=== PATIENT | female | born 1980 | race Two or more races ===

== ENCOUNTER 2022-10-03 07:12 | Outpatient (REF) | payer OTHER, SELFPAY ==
--- NOTE | ~2022-10-03 | XR_ITS ---
EXAMINATION: XR knee RT 2V, XR knee standing BI CLINICAL INFORMATION: Reason for Exam M25.569 - Pain in unspecified knee COMPARISON: None. TECHNIQUE: Standing view of the bilateral knees and u views of the right knee of the XR/XR knee standing BI FINDINGS/IMPRESSION: * No acute fracture or dislocation. * Joint spaces are maintained without significant degenerative change. * No soft tissue abnormality.
--- NOTE | ~2022-10-03 | XR_ITS ---
EXAMINATION: XR knee RT 2V, XR knee standing BI CLINICAL INFORMATION: Reason for Exam M25.569 - Pain in unspecified knee COMPARISON: None. TECHNIQUE: Standing view of the bilateral knees and u views of the right knee of the XR/XR knee RT 2V FINDINGS/IMPRESSION: * No acute fracture or dislocation. * Joint spaces are maintained without significant degenerative change. * No soft tissue abnormality.
== END 2022-10-03 07:13 | disposition home or self-care (01) ==
LOC: HO.HOSX 07:12
PROVIDERS: Visit Provider Physician Assistant
DX: Z13.89 Encounter for screening for other disorder (principal)

== ENCOUNTER 2022-11-07 20:46 | Emergency (ER) | payer MEDICAID, SELFPAY ==
[2022-11-07 20:59] VITALS: BP 152/101; PULSE 93; RESP 16; TEMP 37.3; O2SAT 98; BMI 38.7
--- NOTE | 2022-11-07 22:27 | ED.LOWEXIN ---
HPI - Extremity Injury (Lower) General Chief Complaint: Extremity Injury, Lower Stated Complaint: knee pain Time Seen by Provider: 11/07/22 22:22 Source: patient Mode of arrival: ambulatory Limitations: no limitations History of Present Illness HPI Narrative: 42-year-old female presents with right knee pain, states that it has been worsening over the past 3 or 4 days. She has had chronic knee pain, reported an injury 3 years ago to the right knee, had an MRI approximately 4 years ago and stated that she should have had surgery. Patient is concerned because the pain is worsening without any new injury or trauma. She does not report fevers or chills, does not report loss of sensation or decreased range of motion. Onset (ago): year(s) (4) Injury: Right: knee Type of Injury: unknown Severity: similar to previous episodes Severity scale (1-10): 7 Relieving factors: nothing Exacerbating factors: weight bearing, movement and palpation Associated symptoms: ambulatory Other symptoms: none Treatments prior to arrival: cold therapy and NSAIDS Related Data Previous Rx's Medication Instructions Recorded naproxen 500 mg tablet 500 mg PO BID PRN pain #90 tabs 11/07/22 Allergies Allergy/AdvReac Type Severity Reaction Status Date / Time latex [LATEX] Allergy Intermediate BURNING Verified 11/07/22 23:14 SKIN povidone-iodine Allergy Intermediate PONCE SKIN Verified 11/07/22 23:14 [From BETADINE] soap [From BETADINE] Allergy Intermediate PONCE SKIN Verified 11/07/22 23:14 tramadol [TRAMADOL] Allergy Mild RASH Verified 11/07/22 23:14 benadine Allergy Unknown Unknown Uncoded 11/07/22 23:14 codeine Allergy Unknown Unknown Uncoded 11/07/22 23:14 latex Allergy Unknown Unknown Uncoded 11/07/22 23:14 tramadol Allergy Unknown Unknown Uncoded 11/07/22 23:14 Review of Systems Review of Systems: Constitutional: No Fever, No Chills Cardiovascular: No Chest Pain Respiratory: No Cough, No Dyspnea Musculoskeletal: positive right knee pain, No Joint Swelling Skin: No Skin lacerations, No rash Neuro: No Weakness, No Numbness, No Paresthesias Yes all other systems are reviewed and are negative PMFSH Past Medical History Attestation statement: The following information was validated with the patient. Source: old records reviewed Social History Social History Advance Directives: No Advance Directives Information Provided: Yes Physical Exam Vital Signs: Vital Signs: Last Vital Signs Temp 99.1 F 11/07/22 20:59 Pulse 93 11/07/22 20:59 Resp 16 11/07/22 20:59 BP 152/101 H 11/07/22 20:59 Pulse Ox 98 11/07/22 20:59 O2 Del Method 11/07/22 20:59 BMI result Body Mass Index 38.7 Appearance: Alert. Oriented X3. No acute distress. Eyes: Pupils equal, round and reactive to light. Neck: Normal inspection. CVS: Normal heart rate and rhythm. Pulses normal. Respiratory: No respiratory distress. Breath sounds normal. Skin: Skin warm and dry. Normal skin color. Normal skin turgor. Extremities: No lower extremity edema. Full range of motion to lower extremities. Ambulatory. Gait well-balanced well coordinated. Neuro: No motor deficit. No sensory deficit. Cranial nerves 2-12 intact. Course Course Course Narrative: 42-year-old female presents with 4 years of right knee pain. Had an MRI approximately 40 years ago and surgery was recommended. Patient does not report any new injuries but states over the past 3-4 days that the pain is worsened. Patient is concerned that she may have worsened the chronic condition. I did discuss options with the patient, that she might be able to follow-up with her primary care physician and/or orthopedics for an outpatient MRI. I do not appreciate any bruising, abnormal swelling, or loss of sensation to the extremity. She is ambulatory with some discomfort. X-rays are pending. 22:45 x-ray in right knee degenerative changes consistent with osteoarthritis. Will have patient follow-up with orthopedics for surgical consult. Medications Administered Discontinued Medications Generic Name Dose Route Start Last Admin Trade Name Freq PRN Reason Stop Dose Admin Ketorolac Tromethamine 60 mg 11/07/22 22:54 11/07/22 23:15 Ketorolac Tromethamine 60 Mg/2 Ml Vial IM 11/07/22 22:55 60 mg ONCE ONE Administration Medical Decision Making Differential Diagnosis Differential Diagnoses: The differential diagnosis associated with the presentation includes Tendon or ligament injury, effusion, dislocation, arthritis Admission/Observation Consideration of admission/observation: Escalation of care including admission/observation considered Admission not considered for this patient Radiology Impression Discussion of test interpretation with radiology: I have reviewed the radiologist's reading. Radiologist Impression: EXAMINATION: XR KNEE, RIGHT? CLINICAL INFORMATION: Right knee pain.? COMPARISON: Right knee radiographs dated 05/19/2017. Right knee MRI dated 06/01/2017.? TECHNIQUE: Three views of the right knee. FINDINGS: Mild tricompartmental degenerative joint changes are seen most pronounced in the medial femoral-tibial compartment. There is no acute fracture or dislocation. There is a small suprapatellar joint effusion with the soft tissues are unremarkable.? XR/XR knee RT 2V IMPRESSION: Mild right knee degenerative joint changes most consistent with osteoarthritis. ? Prescription Management I considered prescription management with: Pain Medication Discharge Plan Discharge Clinical Impression: Osteoarthritis Patient Disposition: Home, Self-Care Instructions: Osteoarthritis (ED) Additional Instructions: You were evaluated for knee pain. X-rays indicates degenerative joint changes consistent with osteoarthritis. Please follow-up with your orthopedic surgeon for evaluation. I have referred you to Dr. Edward Verdin. Please call and request an appointment for evaluation Continue to use supportive measures, rest, ice, and elevate to help reduce pain and swelling. Take naproxen 500 mg twice a day as directed. Thank you for choosing this emergency department for evaluation. Please follow-up with primary care physician as needed. Return to the emergency department for any new, concerning, or worsening symptoms. Prescriptions: New naproxen 500 mg tablet 500 mg PO BID PRN (Reason: pain) Qty: 90 0RF Referrals: Edward Verdin MD [Physician] - 2 weeks (Osteoarthritis right knee) Interventions: ED Discharge Assessment Last Done: 11/07/22 23:19 Discharge Date/Time: 11/07/22 23:20
== END 2022-11-07 23:20 | disposition home or self-care (01) ==
PROVIDERS: Emergency Provider Internal Medicine; PCP Physician Assistant Medical
DX: M17.11 Unilateral primary osteoarthritis, right knee (principal); Z79.899 Other long term (current) drug therapy
CPT/HCPCS: 73560; 96372; 99283; 99284; J1885

== ENCOUNTER → 2022-11-21 12:06 | Outpatient (BNVA) | payer MEDICAID, SELFPAY | PROVIDERS: PCP Physician Assistant Medical; Visit Provider Orthopaedic Surgery | DX: M17.11 Unilateral primary osteoarthritis, right knee (principal) | CPT/HCPCS: 73560; 73565; 99202 ==

== ENCOUNTER 2023-01-28 08:46 | Outpatient (REF) | payer MEDICAID, SELFPAY | END 2023-01-28 08:47 | disposition home or self-care (01) | LOC: HO.MRI 08:46 | PROVIDERS: PCP Physician Assistant Medical; Visit Provider Orthopaedic Surgery | DX: Z13.89 Encounter for screening for other disorder (principal) ==

== ENCOUNTER 2023-03-30 12:42 | Outpatient (REF) | payer OTHER, SELFPAY ==
--- NOTE | ~2023-03-30 | MR_ITS ---
EXAMINATION: MR KNEE WITHOUT CONTRAST, RIGHT CLINICAL INFORMATION: Right knee pain and occasional swelling. Osteoarthritis. COMPARISON: Right knee radiographs dated 11/21/2022 and right knee MRI dated 06/01/2017. TECHNIQUE: MRI of the knee without contrast was performed using routine sequences on a high-field scanner. FINDINGS: MENISCI: MEDIAL MENISCUS: Mild degenerative intrasubstance signal without articular surface tearing. LATERAL MENISCUS: The previously seen complex posterior horn/root tear is not identified on the current examination. No current lateral meniscal tear. LIGAMENTS: CRUCIATE: Attenuation of the anterior cruciate ligament, consistent with a remote partial tear. No edema to suggest acute ligament injury. COLLATERAL: Thickening of the medial collateral ligament consistent with a healed, remote injury. No edema to suggest acute injury. Intact fibular collateral ligament. EXTENSOR MECHANISM: Superior patellar enthesophytes. Intact quadriceps and patellar tendons. Normal patellofemoral alignment. ARTICULAR CARTILAGE/BONE: PATELLOFEMORAL COMPARTMENT: Full-thickness articular cartilage fissuring at the patellar median ridge and lateral patellar facet with associated delamination measuring up to 0.8 cm in craniocaudal dimension. Findings are new when compared to the prior examination. Central and medial trochlea thinning and signal heterogeneity with small marginal osteophytes, new when compared to the prior examination. MEDIAL COMPARTMENT: Articular cartilage thinning with areas of full-thickness loss at the weightbearing medial femoral condyle measuring up to 1.5 x 0.9 cm (AP by ML), new when compared to the prior examination. New marginal osteophytes. LATERAL COMPARTMENT: Diffuse articular cartilage signal heterogeneity and surface irregularity with marginal osteophytes, new when compared to the prior examination. JOINT FLUID AND BURSAE: Trace joint effusion and trace Wallace's cyst. MUSCLES/TENDONS: Mild edema within the proximal soleus and lateral gastrocnemius muscles, consistent with mild muscle strains. MR/MR knee RT wo con IMPRESSION: 1. Mild degenerative intrasubstance signal within the medial meniscus without articular surface tearing. The previously seen complex tear of the lateral meniscus posterior horn/root is not identified on the current examination. No new meniscal tear. 2. Healed, remote anterior cruciate ligament and medial collateral ligament injuries. No evidence of acute ligament injury. 3. Moderate patellofemoral and medial as well as mild lateral compartment osteoarthritis, new when compared to the prior examination. Trace joint effusion and trace Wallace's cyst. 4. Mild strains of the proximal soleus and lateral gastrocnemius muscles.
== END 2023-03-30 12:43 | disposition home or self-care (01) ==
LOC: HO.MRI 12:42
PROVIDERS: PCP Physician Assistant Medical; Visit Provider Orthopaedic Surgery
DX: M17.11 Unilateral primary osteoarthritis, right knee (principal)
CPT/HCPCS: 73721

== ENCOUNTER → 2023-05-01 10:26 | Outpatient (BNVA) | payer OTHER, SELFPAY | PROVIDERS: PCP Physician Assistant Medical; Visit Provider Orthopaedic Surgery | DX: M17.11 Unilateral primary osteoarthritis, right knee (principal); S83.206D Unspecified tear of unspecified meniscus, current injury, right knee, subsequent encounter; M92.61 Juvenile osteochondrosis of tarsus, right ankle | CPT/HCPCS: 20610; 99212; J1100 ==

== ENCOUNTER 2024-02-08 08:22 | Outpatient (AMB) | payer OTHER, SELFPAY ==
--- NOTE | 2024-02-08 08:24 | A.OFFVIS_ITS ---
Intake Vital Signs 02/08/24 08:27 Height 5 ft 3 in Weight 219 lb BMI 38.8 Intake Visit Reasons: OV - Right Knee OA & Meniscal Tear Intake Note: Cathi is a 42 year old female who presents today for a follow up of her right knee OA & Lateral Meniscus Tear. it was discussed that she was too young for arthroplasty & not anticipated to benefit from arthroscopy. Last injection was done 05/01/23. Patient reports that the injection was helpful for at least 3 months. She explains that she is having pain, particularly ambulation of stairs. She is taking Ibuprofen and Tylenol for her pain and swelling. Allergies latex [LATEX] Allergy (Intermediate, Verified 02/08/24 08:26) BURNING SKIN povidone-iodine [From BETADINE] Allergy (Intermediate, Verified 02/08/24 08:26) PONCE SKIN soap [From BETADINE] Allergy (Intermediate, Verified 02/08/24 08:26) PONCE SKIN tramadol [TRAMADOL] Allergy (Mild, Verified 02/08/24 08:26) RASH benadine Allergy (Unknown, Uncoded 02/08/24 08:26) Unknown codeine Allergy (Unknown, Uncoded 02/08/24 08:26) Unknown latex Allergy (Unknown, Uncoded 02/08/24 08:26) Unknown tramadol Allergy (Unknown, Uncoded 02/08/24 08:26) Unknown HPI OV - Right Knee OA & Meniscal Tear HPI Details Cathi is a 42 year old female who presents today for a follow up of her right knee OA & Lateral Meniscus Tear. it was discussed that she was too young for arthroplasty & not anticipated to benefit from arthroscopy. Last injection was done 05/01/23. Patient reports that the injection was helpful for at least 3 months. She explains that she is having pain, particularly ambulation of stairs. She is taking Ibuprofen and Tylenol for her pain and swelling. [facility] Medical History Lottie's deformity of right heel Physical Exam Vital Signs: BMI result Body Mass Index 38.8 Const General: no acute distress and alert Orientation/consciousness: patient oriented x3 Neuro General: patient oriented x3 Extrem Other: Right Knee: TTP mostly over medial compartment - Hue's Psych Appearance: grossly normal Affect: normal affect Attitude: cooperative Office Procedures Joint Injection/Drain Joint Injection/Drain Details: Injected 1 mL of Decadron and 3 mL 1% lidocaine and 3 mL of 0.25% Marcaine. Site was prepped using aseptic technique. Patient tolerated the procedure well. Primary Site: right knee Approach Used: anterolateral Coding - Large joint Procedure code (CPT) selection complete Assessment & Plan Assessment & Plan (1) Osteoarthritis of right knee: Code(s): M17.11 - Unilateral primary osteoarthritis, right knee Plan: Moderate OA right knee with degenerative minimally symptomatic meniscal tearing. Surgical benefits may not be justifiable. Injected right knee. f/u as needed. Coding Level of Care Code Est Pt Level 3 (50505) Diagnoses Osteoarthritis of right knee M17.11 CPT Codes Coding - Large joint: 43451 - Large joint ([id number])
[2024-02-08 08:27] VITALS: BMI 38.8
== END 2024-02-08 09:15 | disposition home or self-care (01) ==
PROVIDERS: PCP Nurse Practitioner Primary Care; Visit Provider Orthopaedic Surgery
DX: M17.11 Unilateral primary osteoarthritis, right knee (principal); S83.281A Other tear of lateral meniscus, current injury, right knee, initial encounter
CPT/HCPCS: 20610; 99213

== ENCOUNTER → 2024-02-08 08:22 | Outpatient (BNVA) | payer OTHER, SELFPAY | PROVIDERS: PCP Nurse Practitioner Primary Care; Visit Provider Orthopaedic Surgery | DX: M17.11 Unilateral primary osteoarthritis, right knee (principal); S83.281A Other tear of lateral meniscus, current injury, right knee, initial encounter; X58.XXXA Exposure to other specified factors, initial encounter; Y93.9 Activity, unspecified; Y92.9 Unspecified place or not applicable; Y99.9 Unspecified external cause status | CPT/HCPCS: 20610; 99212; J0665; J1100 ==

== ENCOUNTER 2024-08-03 14:27 | Emergency (ER) | payer OTHER, SELFPAY ==
--- NOTE | ~2024-08-03 | XR_ITS ---
EXAMINATION: XR LUMBOSACRAL SPINE CLINICAL INFORMATION: Low back pain COMPARISON: None available. TECHNIQUE: Three views of the lumbosacral spine. FINDINGS: No fracture or destructive lesion. Degenerative change at the lumbosacral junction possibly due to a transitional vertebral process. Alignment is preserved. XR/XR lumbar spine 2-3V IMPRESSION: Unremarkable exam. No acute findings. Electronically signed by: Ramón San MD 08/03/2024 04:38 PM EDT
--- NOTE | ~2024-08-03 | US_ITS ---
EXAMINATION: US TRIPLEX LOWER EXTREMITY, RIGHT CLINICAL INFORMATION: Calf pain COMPARISON: None available. TECHNIQUE: Color-flow triplex imaging with spectral analysis and compression Doppler were performed on the right lower extremity. FINDINGS: Respiratory variation, normal compression and augmented flow are noted throughout the right lower extremity. The visualized common femoral vein, superficial femoral vein, profunda femoral vein, popliteal vein and midcalf posterior tibial venous segments show no evidence of deep venous thrombosis. The peroneal veins are not seen. There is no Wallace's cyst. US/US venous duplex LE RT IMPRESSION: No evidence of deep venous thrombosis involving the right lower extremity extending from the common femoral vein to the popliteal vein. Limited evaluation of calf veins. The visualized posterior tibial venous segments appear patent. The peroneal veins are not seen. If the patient's symptoms persist, followup ultrasound in 5 days 7 days might be of value to exclude proximal propagation from a non-visualized calf vein. . Electronically signed by: Sung Montejo MD 08/03/2024 05:27 PM EDT
[2024-08-03 15:24] VITALS: BP 182/92; PULSE 76; RESP 20; TEMP 36.4; O2SAT 95; BMI 39.9
--- NOTE | 2024-08-03 15:28 | ED.GENADULT ---
HPI - General Adult General Chief complaint: General Medical Stated complaint: r leg pins and needles-bump on r calf Related Data Home Medications ?Medication ?Instructions ?Recorded ?Confirmed losartan 50 mg tablet 50 mg PO DAILY 02/08/24 metformin 500 mg tablet 500 mg PO DAILY 02/08/24 Allergies Allergy/AdvReac Type Severity Reaction Status Date / Time latex [LATEX] Allergy Intermediate BURNING Verified 08/03/24 15:27 SKIN povidone-iodine Allergy Intermediate PONCE SKIN Verified 08/03/24 15:27 [From BETADINE] soap [From BETADINE] Allergy Intermediate PONCE SKIN Verified 08/03/24 15:27 tramadol [TRAMADOL] Allergy Mild RASH Verified 08/03/24 15:27 benadine Allergy Unknown Unknown Uncoded 08/03/24 15:27 codeine Allergy Unknown Unknown Uncoded 08/03/24 15:27 latex Allergy Unknown Unknown Uncoded 08/03/24 15:27 tramadol Allergy Unknown Unknown Uncoded 08/03/24 15:27 PMFSH Past Medical History Medical History Lottie's deformity of right heel Social History Social History Advance Directives: No Advance Directives Information Provided: No Physical Exam ED Vital Signs: BMI result Body Mass Index 39.9 Course Course Course Narrative: This is a rapid medical exam performed by Danielito George NP: Additional HPI, ROS, PE not included below will be deferred to primary provider. Patient is a 44-year-old female presenting to the ED with complaint of right calf pain which she describes as burning. Also has pain to right heel and right lower back. Plan: lumbar xray, u/s Discharge Plan Discharge Clinical Impression: Pain of right calf Patient Disposition: Left W/O Completing Treatment Prescriptions: No Action metformin 500 mg tablet 500 mg PO DAILY losartan 50 mg tablet 50 mg PO DAILY Discharge Date/Time: 08/04/24 02:18
== END 2024-08-04 02:18 | disposition left against medical advice (07) ==
LOC: HO.ED 08-04 01:25
PROVIDERS: Emergency Provider Emergency Medicine
DX: M79.604 Pain in right leg (principal)
CPT/HCPCS: 72100; 93971; 99281; 99284

== ENCOUNTER 2025-07-31 08:28 | Outpatient (REF) | payer OTHER, SELFPAY ==
--- OUTSIDE RECORDS SUMMARY | 2025-07-26 16:55 | XMS_ITS | Encounter Summary ---
Author Organization [facility] Address [address] [place] [address] Care Team Providers Care Bingo Usher Name Role Phone Physician, No Pcp Primary Care Provider Unavaila ble Reason for Referral * Consultation (Routine) - Pending Review Specialty Diagnoses / Procedures Referred By Contpaxton t Referred To Contact Gynecology Traci Traore MD [address] [place] [phone] Phone: tel: fax: [facility] [address] [place] [address] Phone: tel: fax: Referral ID Status Reason Start Date Expiration Date Visits Requested Visits Authorized [id number] Pending Review Specialty Services Required 07/26/2025 07/26/2026 1 1 Reason for Visit * Reason Comments Hypertension Vaginal Bleeding Encounter Details Date Type Department Care Team (Late st Contact Info) Description 07/26/2025 4:55 PM EDT - 07/26/2025 8:59 PM EDT Emergency [facility] Emergency [address] [place] [address] Traci Traore MD [address] [place] [phone] Kendal De MD [address] [place] [phone] Elevated blood pressure reading (Primary Dx); Acute [...] through Care Everywhere. * Hypertension: General Info (Macedonian) * Vaginal Bleeding (Macedonian) documented in this encounter Medications at Time [...] AM EDT Office Visit Orthopedic Surgery - [place] [address] [facility] [address] [place] [phone] Gallito Hood, DPM 175 [facility] [address] [place] [phone] 08/18/2025 10:15 AM EDT Evaluation [facility] Outpatient Rehabilitation - [place] 175 [facility] [address] [place] [phone] Bessie Shoemaker, JULIANA 11/20/2025 1:00 PM EST Nutrition Bariatric Surgery - [place] 175 [facility] [address] [place] [phone] Minerva Shay, RD 175 [facility] [address] [place] [phone] Scheduled Referrals Name Type Priority Associated Diagnoses [...] Signed Date: 07/27/2025 09:19 ET Workstation ID: [id number] Transcribed By: Self Edit Transcribed Date: 07/27/2025 [...] Signed Date: 07/27/2025 09:19 ET Workstation ID: [id number] Transcribed By: Self Edit Transcribed Date: 07/27/2025 09:19 ET us Traci Traore MD IMG XR PROCEDURES Final Result * hCG, serum, qualitative (07/26/2025 6:35 PM EDT) hCG Qual Negative Negative 07/26/2025 8:05 PM EDT [facility] Blood Venous blood specimen / Unknown Venipuncture / Unknown 07/26/2025 6:35 PM EDT 07/26/2025 7:10 PM EDT us Traci Traore MD LAB BLOOD ORDERABLES Final Resul t [facility] [address] [place] [address], [place] [phone] * Magnesium (07/26/2025 6:35 PM EDT) [facility] Magnesium 1.9 1.9 - 2.6 mg/dL LAB CHEMISTRY METHOD 07/26/2025 7:46 PM EDT [facility] Blood Venous blood specimen / Unknown Venipuncture / Unknown 07/26/2025 6:35 PM EDT 07/26/2025 7:10 PM EDT us Traci Traore MD LAB BLOOD ORDERABLES Final Resul t Performing Organization Address City/[facility]/ZIP Co de Phone Number [facility] [address] [place] [address], [place] [phone] * Lipase (07/26/2025 6:35 PM EDT) [facility] Lipase 38 13 - 75 unit/L LAB CHEMISTRY METHOD 07/26/2025 7:46 PM EDT [facility] Blood Venous blood specimen / Unknown Venipuncture / Unknown 07/26/2025 6:35 PM EDT 07/26/2025 7:10 PM EDT us Traci Traore MD LAB BLOOD ORDERABLES Final Resul t Performing Organization Address [facility]/ZIP Co de Phone Number [facility] [address] [place] [address], [place] [phone] * (ABNORMAL) Comprehensive metabolic panel (07/26/2025 6:35 PM EDT) [facility] Sodium 137 133 - 145 mmol/L LAB CHEMISTRY METHOD 07/26/2025 7:47 PM EDT [facility] Potassium 3.8 3.5 - 5.5 mmol/L LAB CHEMISTRY METHOD 07/26/2025 7:47 PM EDT [facility] Chloride 105 96 - 110 mmol/L LAB CHEMISTRY METHOD 07/26/2025 7:47 PM EDT [facility] CO2 29 21 - 32 mmol/L LAB CHEMISTRY METHOD 07/26/2025 7:47 PM [facility] Anion Gap 3 3 - 11 LAB CHEMISTRY METHOD 07/26/2025 7:47 PM [facility] Glucose 102(H) 70 - 100 mg/dL LAB CHEMISTRY METHOD 07/26/2025 7:47 PM [facility] BUN 11 5 - 25 mg/dL LAB CHEMISTRY METHOD 07/26/2025 7:47 PM [facility] Creatinine 0.72 0.50 - 1.10 mg/dL LAB CHEMISTRY METHOD 07/26/2025 7:47 PM [facility] eGFR 106 >=60 mL/min/1. 73m2 LAB CHEMISTRY METHOD 07/26/2025 7:47 PM [facility] Comment:Calculation based on the Chronic Kidney Disease Epidemiology Collaboration (CKD-EPI) equation refit without adjustment for race. BUN/Creatinine Ratio 15.3 LAB CHEMISTRY METHOD 07/26/2025 7:47 PM [facility] Calcium 8.9 8.5 - 10.5 mg/dL LAB CHEMISTRY METHOD 07/26/2025 7:47 PM [facility] AST (SGOT) 17 10 - 42 unit/L LAB CHEMISTRY METHOD 07/26/2025 7:47 PM [facility] ALT (SGPT) 18 10 - 60 unit/L LAB CHEMISTRY METHOD 07/26/2025 7:47 PM [facility] Alkaline Phosphatase 50 42 - 121 unit/L LAB CHEMISTRY METHOD 07/26/2025 7:47 PM [facility] Total Protein 6.8 6.0 - 8.0 g/dL LAB CHEMISTRY METHOD 07/26/2025 7:47 PM [facility] Albumin 3.6 3.2 - 5.0 g/dL LAB CHEMISTRY METHOD 07/26/2025 7:47 PM [facility] Total Bilirubin 0.2 0.0 - 1.4 mg/dL LAB CHEMISTRY METHOD 07/26/2025 7:47 PM EDT [facility] Blood Venous blood specimen / Unknown Venipuncture / Unknown 07/26/2025 6:35 PM EDT 07/26/2025 7:10 PM EDT us Traci Traore MD LAB BLOOD ORDERABLES Final Resul t Performing Organization Address [facility] de Phone Number [facility] [address] [place] [address], [place] [phone] * Troponin I high sensitivity (07/26/2025 6:35 PM EDT) [facility] High Sensitivity Troponin I 6 <=54 ng/L LAB CHEMISTRY METHOD 07/26/2025 7:46 PM EDT [facility] Blood Venous blood specimen / Unknown Venipuncture / Unknown 07/26/2025 6:35 PM EDT 07/26/2025 7:09 PM EDT Narrative [facility] - 07/26/2025 7:46 PM EDT High levels of biotin in samples may falsely decrease hsTroponin values. Use caution when interpreting hsTroponin results in patients taking biotin who exhibit renal impairment (eGFR <60) or in patients taking more than 20 mg/day of biotin. us Traci Traore MD LAB BLOOD ORDERABLES Final Resul t Performing Organization Address [facility] Co de Phone Number [facility] [address] [place] [address], [place] [phone] * ECG 12 lead (07/26/2025 5:53 PM EDT) [facility] Ventricular Rate ECG 76 BPM GEMUSE Atrial Rate 76 BPM GEMUSE P-R Interval 134 ms GEMUSE QRS Duration 84 ms GEMUSE Q-T Interval 398 ms GEMUSE QTc 447 ms GEMUSE P Wave Whitman 11 degrees GEMUSE R Whitman -7 degrees GEMUSE T Whitman 9 degrees GEMUSE ECG Interpretation Normal sinus [...] urine culture tube (07/26/2025 5:49 PM EDT) [facility] Extra Tube Hold for add-ons. 07/26/2025 8:01 PM EDT [facility] Comment:Auto resulted. Urine Urine specimen obtained by clean catch procedure / Unknown 07/26/2025 5:49 PM EDT 07/26/2025 6:03 PM EDT Traci Traore MD LAB URINE ORDERABLES Final Resul t Performing Organization Address [facility]/ZIP Co de Phone Number [facility] [address] [place] [address], [place] [phone] * (ABNORMAL) Urinalysis with reflex microscopic (07/26/2025 5:49 PM EDT) [facility] Specific [place] Urine 1.025 1.003 - 1.030 LAB URINALYSIS - AUTOMATED METHOD 07/26/2025 6:11 PM EDT [facility] pH, Urine 6.0 5.0 - 8.0 pH LAB URINALYSIS - AUTOMATED METHOD 07/26/2025 6:11 PM EDT [facility] Leukocytes, Urine Trace(A) Negative LAB URINALYSIS - AUTOMATED METHOD 07/26/2025 6:11 PM EDT [facility] Nitrite, Urine Negative Negative LAB URINALYSIS - AUTOMATED METHOD 07/26/2025 6:11 PM [facility] Protein, Urine 30(A) <=Trace mg/dL LAB URINALYSIS - AUTOMATED METHOD 07/26/2025 6:11 PM [facility] Glucose, Urine Negative Negative mg/dL LAB URINALYSIS - AUTOMATED METHOD 07/26/2025 6:11 PM [facility] Ketones, Urine Negative Negative mg/dL LAB URINALYSIS - AUTOMATED METHOD 07/26/2025 6:11 PM [facility] Urobilinogen , Urine 1.0 0.2 - 1.0 mg/dL LAB URINALYSIS - AUTOMATED METHOD 07/26/2025 6:11 PM [facility] Bilirubin, Urine Negative Negative LAB URINALYSIS - AUTOMATED METHOD 07/26/2025 6:11 PM [facility] Blood, Urine Moderate(A) Negative LAB URINALYSIS - AUTOMATED METHOD 07/26/2025 6:11 PM [facility] RBC, Urine 2.9 0 - 4 /HPF LAB URINALYSIS - AUTOMATED METHOD 07/26/2025 6:11 PM [facility] WBC, Urine 3.8 0 - 4 /HPF LAB URINALYSIS - AUTOMATED METHOD 07/26/2025 6:11 PM [facility] Squamous Epithelial, Urine >100(H) 0 - 60 /LPF LAB URINALYSIS - AUTOMATED METHOD 07/26/2025 6:11 PM [facility] Bacteria, Urine Negative Negative /HPF LAB URINALYSIS - AUTOMATED METHOD 07/26/2025 6:11 PM [facility] Hyaline Casts, Urine 3.2(H) 0 - 3 /LPF LAB URINALYSIS - AUTOMATED METHOD 07/26/2025 6:11 PM [facility] Urine Urine specimen obtained by clean catch procedure / Unknown Non-blood Collection / Unknown 07/26/2025 5:49 PM EDT 07/26/2025 6:03 PM EDT us Traci Traore MD LAB URINE ORDERABLES Final Resul t [facility] [address] [place] [address], * CBC auto differential (07/26/2025 5:48 PM EDT) WBC 7.8 4.8 - 10.8 K/mcL LAB HEMETOLOGY METHOD 07/26/2025 6:10 PM EDT [facility] RBC 4.60 3.80 - 4.80 M/mcL LAB HEMETOLOGY METHOD 07/26/2025 6:10 PM EDT [facility] Hemoglobin 13.5 11.5 - 16.0 g/dL LAB HEMETOLOGY METHOD 07/26/2025 6:10 PM EDT [facility] Hematocrit 40.0 35.0 - 47.0 % LAB HEMETOLOGY METHOD 07/26/2025 6:10 PM EDT [facility] MCV 86.2 79.0 - 98.0 FL LAB HEMETOLOGY METHOD 07/26/2025 6:10 PM EDT [facility] MCH 29.1 27.0 - 32.0 pcg LAB HEMETOLOGY METHOD 07/26/2025 6:10 PM EDT [facility] MCHC 33.8 32.0 - 37.0 g/dL LAB HEMETOLOGY METHOD 07/26/2025 6:10 PM EDT [facility] RDW 12.8 11.0 - 15.0 % LAB HEMETOLOGY METHOD 07/26/2025 6:10 PM EDT [facility] Platelets 337 130 - 400 K/mcL LAB HEMETOLOGY METHOD 07/26/2025 6:10 PM EDT [facility] MPV 10.2 7.0 - 11.0 FL LAB HEMETOLOGY METHOD 07/26/2025 6:10 PM EDT [facility] NRBC 0.0 <1.0 % LAB HEMETOLOGY METHOD 07/26/2025 6:10 PM EDT [facility] NRBC Absolute 0.00 <0.10 K/mcL LAB HEMETOLOGY METHOD 07/26/2025 6:10 PM EDT [facility] Neutrophils Relative 58.3 % LAB HEMETOLOGY METHOD 07/26/2025 6:10 PM EDT [facility] Lymphocytes Relative 30.0 % LAB HEMETOLOGY METHOD 07/26/2025 6:10 PM EDT [facility] Monocytes Relative 7.7 % LAB HEMETOLOGY METHOD 07/26/2025 6:10 PM EDT [facility] Eosinophils Relative 3.1 % LAB HEMETOLOGY METHOD 07/26/2025 6:10 PM EDT [facility] Basophils Relative 0.6 % LAB HEMETOLOGY METHOD 07/26/2025 6:10 PM EDT [facility] Immature Granulocytes Relative 0.3 % LAB HEMETOLOGY METHOD 07/26/2025 6:10 PM EDT [facility] Neutrophils Absolute 4.55 1.50 - 7.00 K/mcL LAB HEMETOLOGY METHOD 07/26/2025 6:10 PM EDT [facility] Lymphocytes Absolute 2.34 1.00 - 5.00 K/mcL LAB HEMETOLOGY METHOD 07/26/2025 6:10 PM EDT [facility] Monocytes Absolute 0.60 0.20 - 1.00 K/mcL LAB HEMETOLOGY METHOD 07/26/2025 6:10 PM EDT [facility] Eosinophils Absolute 0.24 0.00 - 0.50 K/mcL LAB HEMETOLOGY METHOD 07/26/2025 6:10 PM EDT [facility] Basophils Absolute 0.05 0.00 - 0.20 K/[facility] HEMETOLOGY METHOD 07/26/2025 6:10 PM EDT [facility] Immature Granulocytes Absolute 0.02 0.00 - 0.03 K/[facility] HEMETOLOGY METHOD 07/26/2025 6:10 PM EDT [facility] Blood Venous blood specimen / Unknown Venipuncture / Unknown 07/26/2025 5:48 PM EDT 07/26/2025 6:04 PM EDT us Traci Traore MD LAB BLOOD ORDERABLES Final Resul t Performing Organization Address City/[facility]/ZIP Co de Phone Number [facility] [address] [place] [address], [place] [phone] * B-type natriuretic peptide (07/26/2025 5:48 PM EDT) [facility] BNP 7 <=100 pcg/mL LAB CHEMISTRY METHOD 07/26/2025 6:50 PM EDT [facility] Blood Venous blood specimen / Unknown Venipuncture / Unknown 07/26/2025 5:48 PM EDT 07/26/2025 6:04 PM EDT us Traci Traore MD LAB BLOOD ORDERABLES Final Resul t [facility] [address] [place] [address], [place] [phone] * Troponin I high sensitivity (07/26/2025 5:48 PM EDT) High Sensitivity Troponin I 5 <=54 ng/L LAB CHEMISTRY METHOD 07/26/2025 6:37 PM EDT [facility] Blood Venous blood specimen / Unknown Venipuncture / Unknown 07/26/2025 5:48 PM EDT 07/26/2025 6:04 PM EDT Narrative [facility] - 07/26/2025 6:37 PM EDT High levels of biotin in samples may falsely decrease hsTroponin values. Use caution when interpreting hsTroponin results in patients taking biotin who exhibit renal impairment (eGFR <60) or in patients taking more than 20 mg/day of biotin. us Traci Traore MD LAB BLOOD ORDERABLES Final Resul t [facility] [address] [place] [address], [place] [phone] documented in this encounter Visit Diagnoses Diagnosis [...] 07/26/2025 documented in this encounter Care Teams Bingo Usher Relationship Specialty Start Date End Date Physician, No Pcp PCP - General 04/28/25 documented as of this encounter
--- NOTE | ~2025-07-31 | XR_ITS ---
EXAMINATION: XR KNEE 1-2 VIEWS RIGHT HISTORY: pain COMPARISON: Comparison is made with the prior examination dated 11/21/2022. FINDINGS: Standing AP views of both knees and additional lateral and sunrise patellar views of the right knee are submitted. Osseous mineralization is normal. There is mild degenerative change of the patellofemoral joint with osteophyte formation. The joint spaces are preserved. The soft tissues are unremarkable. There is no joint effusion. XR/XR knee RT 2V IMPRESSION: Degenerative changes of the right knee as described. Electronically signed by: Doron Borrego MD 08/01/2025 07:44 AM EDT
--- OUTSIDE RECORDS SUMMARY | 2025-08-01 10:04 | XMS_ITS | Encounter Summary ---
Author Organization [facility] Address [address] [place] [address] Care Team Providers Care Retail Custodial Associate Name Role Phone Physician, No Pcp Primary Care Provider Unavaila ble Encounter Details Date Type Department Care Team ([facility] st Contact Info) Description 07/26/2025 Telephone Orthopedic Surgery - [place] [address] [phone] Gallito Hood, DPM [address] [phone] Social History Tobacco Use Types Packs/Day Years [...] AM EDT Office Visit Orthopedic Surgery - [place] 250 175 [facility] 250 [place] [address] Gallito Hood, DPM 175 [facility] [address] [place] [phone] 08/18/2025 10:15 AM EDT Evaluation [facility] [place] 175 [facility] [address] [place] [address] Bessie Shoemaker, PT 11/20/2025 1:00 PM EST Nutrition Bariatric Surgery - [place] 175 [facility] [address] [place] [address] Minerva Shay, RD 175 [facility] [address] [place] [address] documented as of this encounter Visit Diagnoses Not on filedocumented in this encounter Care Teams Retail Custodial Associate Relationship Specialty Start Date End Date Physician, No Pcp PCP - General 04/28/25 documented as of this encounter
--- OUTSIDE RECORDS SUMMARY | 2025-08-01 10:04 | XMS_ITS | Clinical Summary ---
Author Organization 175 [facility] Address [address] [place] [address] Phone Care Team Providers Care High [employer] Social Studies Tutor Name Role Phone Physician, No Pcp Primary [...] (BMI) of 40.0 to 44.9 in adult ([facility] V24, [facility] V28) 08/19/2024 Microalbuminuria 05/29/2021 Type II or unspecified type diabetes mellitus with renal manifestations, 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.42) ([facility] V24, [facility] V28) 05/29/2021 Essential hypertension 08/24/2019 Low grade squamous intraepit h lesion on cytologic smear cervix (lgsil) 04/27/2017 Overview (08/19/2024): 03/13/17 LSIL 04/24/17 IVETTE 1 10/19/20 ASC-H HR-HPV + neg 18/45 01/29/2021 IVETTE 1 10/31/2021 NSIL HRHPV neg Chronic headaches 12/27/2014 Migraines 12/27/2014 Neck pain 12/27/2014 Encounters Date Type Department Care Team Description 07/26/2025 4:55 PM EDT - 07/26/2025 8:59 PM EDT Emergency [facility] Emergency [address] [place] [phone] Traci Traore MD Granzo, Daniela, MD Elevated blood pressure reading (Primary Dx); Acute nonintractable headache, unspecified headache type; Menorrhagia with irregular cycle Discharge Disposition: Home or Self Care 07/26/2025 1:45 PM EDT Office Visit Bariatric Surgery [facility] 175 [facility] [address] [place] [phone] Zabrina Scales MD Obesity (BMI 30-39.9) (Primary Dx); Essential hypertension; Achilles tendon tear, right, sequela; Type II or unspecified type diabetes mellitus with renal manifestations, 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.42) ([facility] V24, [facility] V28) 07/26/2025 Telephone Orthopedic Surgery [facility] [address] [phone] Gallito Hood DPM 07/06/2025 9:00 AM EDT Office Visit Orthopedic [facility] [address] [phone] Gallito Hood DPM Achilles tendon tear, right, sequela (Primary Dx) 06/21/2025 9:45 AM EDT Office Visit Orthopedic [facility] [address] [phone] Gallito Hood DPM Post-operative state (Primary Dx) 05/10/2025 Telephone Orthopedic Surgery [facility] [address] [phone] Zoraida Booth 05/08/2025 10:15 AM EDT Office Visit Orthopedic Surgery [facility] 250 175 [facility] [address] [place] [address] Gallito Hood DPM Post-operative state [...] DX:Diabetes mellitus type 2, controlled, with complications ([facility]) Essential hypertension DX:Essent ial hypertension Family History [...] AM EDT Office Visit Orthopedic Surgery - [place] [address] [phone] Gallito Hood, DPM [address] [phone] 08/18/2025 10:15 AM EDT Evaluation [facility] [place] [address] [phone] Bessie Shoemaker, PT 11/20/2025 1:00 PM EST Nutrition Bariatric Surgery - [place] [address] [phone] Minerva Shay, RD 175 [facility] 120 [place] [address] Health Maintenance Due Date Last [...] this topic Medical Devices Implanted Type Area Plastic Outfitter Device Identifier Shelf Expiration Date Model / Serial / Lot Implant Bioinductive W/Arth Kuldeep [facility] - [id number] Implanted:Qty: 1 on 04/28/2025 by Gallito Hood DPM at [facility] [employer] Right: Ankle [employer] - ENDOSCOPY 01/05/2028 [id number] / NA / [id number] Ultrabridge Kit Implanted:Qty: 1 on 04/28/2025 by Gallito Hood DPM at [facility] Right: Ankle [employer] 12/28/2027 [id number] / NA / [id number] Procedures Procedure Name Priority Date/Time Associated Diagnosis [...] Signed Date: 07/27/2025 09:19 ET Workstation ID: [id number] Transcribed By: Self Edit Transcribed Date: 07/27/2025 [...] Signed Date: 07/27/2025 09:19 ET Workstation ID: [id number] Transcribed By: Self Edit Transcribed Date: 07/27/2025 [...] ORDERABLES Final Resul t Performing Organization Address City/[facility]/ZIP Co de Phone Number [facility] [address] [place] [address], [place] [phone] * hCG, serum, qualitative (07/26/2025 6:35 PM EDT) Pathologist [facility] hCG Qual Negative Negative 07/26/2025 8:05 PM EDT [facility] Blood Venous blood specimen / Unknown Venipuncture / Unknown 07/26/2025 6:35 PM EDT 07/26/2025 7:10 PM EDT us Traci Traore MD LAB BLOOD ORDERABLES Final Resul t Performing Organization Address [facility] de Phone Number [facility] [address] [place] [address], [place] [phone] * Magnesium (07/26/2025 6:35 PM EDT) [facility] Magnesium 1.9 1.9 - 2.6 mg/dL LAB CHEMISTRY METHOD 07/26/2025 7:46 PM EDT [facility] Blood Venous blood specimen / Unknown Venipuncture / Unknown 07/26/2025 6:35 PM EDT 07/26/2025 7:10 PM EDT us Traci Traore MD LAB BLOOD ORDERABLES Final Resul t Performing Organization Address [facility]/ZIP Co de Phone Number [facility] [address] [place] [address], [place] [phone] * Lipase (07/26/2025 6:35 PM EDT) Pathologist [facility] Lipase 38 13 - 75 unit/L LAB CHEMISTRY METHOD 07/26/2025 7:46 PM [facility] Blood Venous blood specimen / Unknown Venipuncture / Unknown 07/26/2025 6:35 PM EDT 07/26/2025 7:10 PM EDT Traci Traore MD LAB BLOOD ORDERABLES Final Resul t [facility] [address] [place] [address], * (ABNORMAL) Comprehensive metabolic panel (07/26/2025 6:35 PM EDT) [facility] Sodium 137 133 - 145 mmol/L LAB CHEMISTRY METHOD 07/26/2025 7:47 PM [facility] Potassium 3.8 3.5 - 5.5 mmol/L LAB CHEMISTRY METHOD 07/26/2025 7:47 PM [facility] Chloride 105 96 - 110 mmol/L LAB CHEMISTRY METHOD 07/26/2025 7:47 PM [facility] CO2 29 21 - 32 mmol/L LAB CHEMISTRY METHOD 07/26/2025 7:47 PM [facility] Anion Gap 3 3 - 11 LAB CHEMISTRY METHOD 07/26/2025 7:47 PM [facility] Glucose 102(H) 70 - 100 mg/dL LAB CHEMISTRY METHOD 07/26/2025 7:47 PM [facility] BUN 11 5 - 25 mg/dL LAB CHEMISTRY METHOD 07/26/2025 7:47 PM [facility] Creatinine 0.72 0.50 - 1.10 mg/dL LAB CHEMISTRY METHOD 07/26/2025 7:47 PM [facility] eGFR 106 >=60 mL/min/1. 73m2 LAB CHEMISTRY METHOD 07/26/2025 7:47 PM T [facility] Comment:Calculation based on the Chronic Kidney Disease Epidemiology Collaboration (CKD-EPI) equation refit without adjustment for race. BUN/Creatinine Ratio 15.3 LAB CHEMISTRY METHOD 07/26/2025 7:47 PM [facility] Calcium 8.9 8.5 - 10.5 mg/dL LAB CHEMISTRY METHOD 07/26/2025 7:47 PM [facility] AST (SGOT) 17 10 - 42 unit/L LAB CHEMISTRY METHOD 07/26/2025 7:47 PM [facility] ALT (SGPT) 18 10 - 60 unit/L LAB CHEMISTRY METHOD 07/26/2025 7:47 PM [facility] Alkaline Phosphatase 50 42 - 121 unit/L LAB CHEMISTRY METHOD 07/26/2025 7:47 PM [facility] Total Protein 6.8 6.0 - 8.0 g/dL LAB CHEMISTRY METHOD 07/26/2025 7:47 PM [facility] Albumin 3.6 3.2 - 5.0 g/dL LAB CHEMISTRY METHOD 07/26/2025 7:47 PM [facility] Total Bilirubin 0.2 0.0 - 1.4 mg/dL LAB CHEMISTRY METHOD 07/26/2025 7:47 PM [facility] Blood Venous blood specimen / Unknown Venipuncture / Unknown 07/26/2025 6:35 PM EDT 07/26/2025 7:10 PM EDT us Traci Traore MD LAB BLOOD ORDERABLES Final Resul t [facility] [address] [place] [address], * ECG 12 lead (07/26/2025 5:53 PM EDT) Pathologist [facility] Ventricular Rate ECG 76 BPM GEMUSE Atrial Rate 76 BPM GEMUSE P-R Interval 134 ms GEMUSE QRS Duration 84 ms GEMUSE Q-T Interval 398 ms GEMUSE QTc 447 ms GEMUSE P Wave [place] 11 degrees GEMUSE R [place] -7 degrees GEMUSE T [place] 9 degrees GEMUSE ECG Interpretation Normal sinus [...] with reflex microscopic (07/26/2025 5:49 PM EDT) [facility] Specific [place] Urine 1.025 1.003 - 1.030 LAB URINALYSIS - AUTOMATED METHOD 07/26/2025 6:11 PM [facility] pH, Urine 6.0 5.0 - 8.0 pH LAB URINALYSIS - AUTOMATED METHOD 07/26/2025 6:11 PM [facility] Leukocytes, Urine Trace(A) Negative LAB URINALYSIS - AUTOMATED METHOD 07/26/2025 6:11 PM [facility] Nitrite, Urine Negative Negative LAB URINALYSIS - AUTOMATED METHOD 07/26/2025 6:11 PM [facility] Protein, Urine 30(A) <=Trace mg/dL LAB URINALYSIS - AUTOMATED METHOD 07/26/2025 6:11 PM [facility] Glucose, Urine Negative Negative mg/dL LAB URINALYSIS - AUTOMATED METHOD 07/26/2025 6:11 PM [facility] Ketones, Urine Negative Negative mg/dL LAB URINALYSIS - AUTOMATED METHOD 07/26/2025 6:[facility] Urobilinogen , Urine 1.0 0.2 - 1.0 mg/dL LAB URINALYSIS - AUTOMATED METHOD 07/26/2025 6:11 PM [facility] Bilirubin, Urine Negative Negative LAB URINALYSIS - AUTOMATED METHOD 07/26/2025 6:11 PM [facility] Blood, Urine Moderate(A) Negative LAB URINALYSIS - AUTOMATED METHOD 07/26/2025 6:11 PM [facility] RBC, Urine 2.9 0 - 4 /HPF LAB URINALYSIS - AUTOMATED METHOD 07/26/2025 6:11 PM [facility] WBC, Urine 3.8 0 - 4 /HPF LAB URINALYSIS - AUTOMATED METHOD 07/26/2025 6:11 PM [facility] Squamous Epithelial, Urine >100(H) 0 - 60 /LPF LAB URINALYSIS - AUTOMATED METHOD 07/26/2025 6:11 PM [facility] Bacteria, Urine Negative Negative /HPF LAB URINALYSIS - AUTOMATED METHOD 07/26/2025 6:11 PM [facility] Hyaline Casts, Urine 3.2(H) 0 - 3 /LPF LAB URINALYSIS - AUTOMATED METHOD 07/26/2025 6:11 PM [facility] Urine Urine specimen obtained by clean catch procedure / Unknown Non-blood Collection / Unknown 07/26/2025 5:49 PM EDT 07/26/2025 6:03 PM EDT us Traci Traore MD LAB URINE ORDERABLES Final Resul t [facility] [address] [place] [address], * Bah urine culture tube (07/26/2025 5:49 PM EDT) Pathologist [facility] Extra Tube Hold for add-ons. 07/26/2025 8:01 PM EDT [facility] Comment:Auto resulted. Urine Urine specimen obtained by clean catch procedure / Unknown 07/26/2025 5:49 PM EDT 07/26/2025 6:03 PM EDT us Traci Traore MD LAB URINE ORDERABLES Final Resul t [facility] [address] [place] [address], * CBC auto differential (07/26/2025 5:48 PM EDT) [facility] WBC 7.8 4.8 - 10.8 K/mcL LAB [...] K/mcL LAB HEMETOLOGY METHOD [facility]/2025 6:10 PM [facility] MPV 10.2 7.0 - 11.0 FL LAB HEMETOLOGY METHOD 07/26/2025 6:[facility] NRBC 0.0 <1.0 % LAB HEMETOLOGY METHOD 07/26/2025 6:10 PM [facility] NRBC Absolute 0.00 <0.10 K/mcL LAB HEMETOLOGY METHOD 07/26/2025 6:10 PM [facility] Neutrophils Relative 58.3 % LAB HEMETOLOGY METHOD 07/26/2025 6:10 PM [facility] Lymphocytes Relative 30.0 % LAB HEMETOLOGY METHOD 07/26/2025 6:10 PM [facility] Monocytes Relative 7.7 % LAB HEMETOLOGY METHOD 07/26/2025 6:10 PM [facility] Eosinophils Relative 3.1 % LAB HEMETOLOGY METHOD 07/26/2025 6:10 PM [facility] Basophils Relative 0.6 % LAB HEMETOLOGY METHOD 07/26/2025 6:10 PM [facility] Immature Granulocytes Relative 0.3 % LAB HEMETOLOGY METHOD 07/26/2025 6:10 PM [facility] Neutrophils Absolute 4.55 1.50 - 7.00 K/mcL LAB HEMETOLOGY METHOD 07/26/2025 6:10 PM [facility] Lymphocytes Absolute 2.34 1.00 - 5.00 K/mcL LAB HEMETOLOGY METHOD 07/26/2025 6:10 PM [facility] Monocytes Absolute 0.60 0.20 - 1.00 K/mcL LAB HEMETOLOGY METHOD 07/26/2025 6:10 PM EDT [facility] Eosinophils Absolute 0.24 0.00 - 0.50 K/[facility] LAB HEMETOLOGY METHOD 07/26/2025 6:10 PM EDT [facility] Basophils Absolute 0.05 0.00 - 0.20 K/[facility] LAB HEMETOLOGY METHOD 07/26/2025 6:10 PM EDT [facility] Immature Granulocytes Absolute 0.02 0.00 - 0.03 K/[facility] LAB HEMETOLOGY METHOD 07/26/2025 6:10 PM EDT [facility] Blood Venous blood specimen / Unknown Venipuncture / Unknown 07/26/2025 5:48 PM EDT 07/26/2025 6:04 PM EDT us Traci Traore MD LAB BLOOD ORDERABLES Final Resul t Performing Organization Address City/[facility]/ZIP Co de Phone Number [facility] [address] [place] [address], [place] [phone] * B-type natriuretic peptide (07/26/2025 5:48 PM EDT) BNP 7 <=100 pcg/mL LAB CHEMISTRY METHOD 07/26/2025 6:50 PM EDT [facility] Blood Venous blood specimen / Unknown Venipuncture / Unknown 07/26/2025 5:48 PM EDT 07/26/2025 6:04 PM EDT us Traci Traore MD LAB BLOOD ORDERABLES Final Resul t [facility] [address] [place] [address], [place] [phone] * XR Foot 3+ Views Right (06/21/2025 10:27 AM EDT) Only the most recent of2 resultswithin the time period is included. 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 Result [facility] Gallito Hood DPM IMG XR PROCEDURES Final R esult * Cervical Cancer Screening: HPV (10/31/2021) [facility] Cervical Cancer Screening: HPV negative, abstracted Result [facility] HEALTH MAINTENANCE Final Result * HIV Screening (10/31/2021) [facility] HIV Screening abstracted Result [facility] HEALTH MAINTENANCE Final Result * Hepatitis C Screening (10/31/2021) [facility] Hepatitis C Screening abstracted Result [facility] Provider HEALTH MAINTENANCE Final Result * (ABNORMAL) Hemoglobin A1c (09/30/2021) [facility] Hemoglobin A1C 6.9(A) <=6.5 % Blood Venous blood specimen / Unknown Result [facility] Provider LAB BLOOD ORDERABLES Trish l Result * (ABNORMAL) Lipid panel (09/30/2021) [facility] LDL/HDL Ratio 4 0 - 4 Triglycerides 120 0 - 150 mg/dL Cholesterol 222(A) 0 - 200 mg/dL HDL 52 >=40 mg/dL LDL Cholesterol 146(A) 0 - 100 mg/dL Blood Venous blood specimen / Unknown Result [facility] Provider LAB BLOOD ORDERABLES Trish l Result [...] Most Recently Relevant to Health Maintenance Insurance [facility] MEDICAID ADVANTAGE Care Teams High School Social Studies Tutor Relationship Specialty Start Date End Date Physician, No Pcp PCP - General 04/28/25
--- OUTSIDE RECORDS SUMMARY | 2025-08-01 10:04 | XMS_ITS | Clinical Summary ---
Author Organization [facility] Address [address] [place] [address] Care Team Providers Care Jogger Operator Name Role Phone Unavailable Primary Care Provider [...] Drug Screen 11/16/2024 Depression Annual Screen 11/16/2024 [id number] ( season) 2025 021, 02/05/2021 Imm-Influenza (#1) 2025 HIV Screening Completed 11/26/2020 Cervical Ablation/Cold-Knife Conization Discontinued Cervical Cryotherapy Discontinued Colposcopy Discontinued Endometrial Biopsy Discontinued Excision/Leep Discontinued HPV Genotyping Discontinued Vaginal Pap Discontinued Vulvoscopy Discontinued Insurance [employer] PLAN Member Subscriber Plan / Payer (Ef fective 2018-Present) Name:Cathi Hart Relation to Subscriber:Self Name:Cathi Hart Payer ID:[id number] Group ID:Not on file Type:Medicaid Address: [facility] [address] [place] [address]
== END 2025-07-31 08:29 | disposition home or self-care (01) ==
LOC: HO.HOSX 08:28
PROVIDERS: Visit Provider Physician Assistant
DX: M17.11 Unilateral primary osteoarthritis, right knee (principal)
CPT/HCPCS: 73560; 99212

== ENCOUNTER 2025-07-31 15:12 | Outpatient (AMB) | payer OTHER, SELFPAY ==
--- OUTSIDE RECORDS SUMMARY | 2025-07-26 13:45 | XMS_ITS | Encounter Summary ---
Author Organization [employer] Address [address] [place] [address] Care Team Providers Care Medical Bill Processor Name Role Phone Physician, No Pcp Primary Care Provider Unavaila ble Reason for Visit * Reason Comments Follow-up F/U Encounter Details Date Type Department Care Team (Late st Contact Info) Description 07/26/2025 1:45 PM EDT Office Visit Bariatric Surgery - [place] [address] [facility] [address] [place] [phone] Zabrina Scales MD [address] [place] [phone] Obesity (BMI 30-39.9) (Primary Dx); Essential hypertension; Achilles tendon tear, right, sequela; Type II or unspecified type diabetes mellitus with renal manifestations, 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.42) ([facility] V24, [facility] V28) Social History Tobacco Use Types Packs/Day Years Used Date Smoking Tobacco: Never Smokeless Tobacco: Never Alcohol Use Standard Drinks/Week Comments Yes 0 (1 standard drink = 0.6 oz pur e alcohol) Interpersonal Safety Answer Date Record ed Physical Abuse 04/28/2025 Verbal Abuse 04/28/2025 Comments No Sex and Gender Information Value Date Recorded Sex Assigned at Female 01/10/2025 5:11 PM EST Legal Sex Female 9:14 AM EST Gender Identity Female 01/10/2025 5:11 PM EST Sexual Orientation Straight 01/10/2025 5: 11 PM EST documented as of this encounter Last Filed Vital Signs Vital Sign Reading Time Taken Comments Blood Pressure 148/99 07/26/2025 1:51 PM EDT Pulse 84 07/26/2025 1:51 PM EDT Temperature 36.7 C (98.1 F) 07/26/2025 1:51 PM EDT Respiratory Rate - - Oxygen Saturation - - Inhaled Oxygen Concentration - - Weight 102 kg (225 lb) 07/26/2025 1:51 PM EDT Height 160 cm (5' 3 ) 07/26/2025 1:51 PM EDT Body Mass Index 39.86 07/26/2025 1:51 PM EDT documented in this encounter Progress Notes * Zabrina Scales MD - 07/26/2025 1:45 PM EDT Last seen on 05/23/24. Patient denies any significant change in her history since then. She did have a surgery on her right foot/ankle in April for bone spurs and Achilles tendon and now has weightbearing restrictions. Diet: Reflux has improved. Is on pantoprazole which helps. Is following up with GI. DM: stopped metformin, on ozempic. A1C down to 6.5 Weight change since last visit: 222-225= +3 lbs Max 237 Exercise: limited by post op right tendon surgery in April for bone spurs Weight bearing restrictions PCP: just saw her PCP yesterday and had lab work done. Woke up with a headache, had hypertension. PCP recommended that she double up on her losartan. Despite this she continues to have a headache with a somewhat elevated blood pressure. PCP recommend that she go to the ER. She will go right after this visit. Vitals: 07/26/25 1351 BP: (!) 148/99 BP Location: Right arm Patient Position: Sitting BP Cuff Size: Large adult long Pulse: 84 Temp: 36.7 ??C (98.1 ??F) TempSrc: Temporal Weight: 102 kg (225 lb) Height: 1.6 m (63 ) Assessment and plan: 45-year-old female who is interested in restarting the weight loss program. Asit has been over a year she needs to restart from the beginning. We will have her follow-up with the dietitian, discussed the importance of lifelong diet and exercise. Unfortunately exercise is currently limited due to her recent surgery and weightbearing restrictions. I reordered labs. She did seeher PCP yesterday, she will fax us the note as well as the results of the recent labs. I will orderwhat ever of her nutritional labs I need once I have those results. Reflux control is improved. Continue antiacid. Continue follow-up with GI. Diabetes is well-controlled. Continue Ozempic for now. Surgical options were discussed. She will go to the emergency room now. documented in this encounter Plan of Treatment Upcoming Encounters Date Type Department Care Team (Late st Contact Info) Description 08/14/2025 9:45 AM EDT Office Visit Orthopedic Surgery - [place] [address] [facility] [address] [place] [phone] Gallito Hood, DPM [address] [facility] [address] [place] [phone] 08/18/2025 10:15 AM EDT Evaluation [facility] [place] [address] [facility] [address] [place] [phone] Bessie Shoemaker, PT 11/20/2025 1:00 PM EST Nutrition Bariatric Surgery - [place] [address] [facility] [address] [place] [phone] Minerva Shay, RD [address] [facility] [address] [place] [phone] Scheduled Orders Name Type Priority Associated Diagnoses Orde r Schedule CBC and differential Lab Routine Obesity (BMI 30-39.9) 1 Occurrences starting 07/26/2025 until 07/26/2026 Comprehensive metabolic panel Lab Routine Obesity (BMI 30-39.9) 1 Occurrences starting 07/26/2025 until 07/26/2026 Cortisol Lab Routine Obesity (BMI 30-39.9) 1 Occurrences starting 07/26/2025 until 07/26/2026 Ferritin Lab Routine Obesity (BMI 30-39.9) 1 Occurrences starting 07/26/2025 until 07/26/2026 Folate Lab Routine Obesity (BMI 30-39.9) 1 Occurrences starting 07/26/2025 until 07/26/2026 Helicobacter pylori breath test Lab Routine Obesity (BMI 30-39.9) 1 Occurrences starting 07/26/2025 until 07/26/2026 Hemoglobin A1c Lab Routine Obesity (BMI 30-39.9) 1 Occurrences starting 07/26/2025 until 07/26/2026 Insulin, total Lab Routine Obesity (BMI 30-39.9) 1 Occurrences starting 07/26/2025 until 07/26/2026 Iron and TIBC Lab Routine Obesity (BMI 30-39.9) 1 Occurrences starting 07/26/2025 until 07/26/2026 Lipid panel with reflex to direct LDL Lab Routine Obesity (BMI 30-39.9) 1 Occurrences starting 07/26/2025 until 07/26/2026 Nicotine and cotinine Lab Routine Obesity (BMI 30-39.9) 1 Occurrences starting 07/26/2025 until 07/26/2026 Parathyroid hormone intact Lab Routine Obesity (BMI 30-39.9) 1 Occurrences starting 07/26/2025 until 07/26/2026 Thyroid stimulating hormone with reflex to free t4 and free t3 Lab Routine Obesity (BMI 30-39.9) 1 Occurrences starting 07/26/2025 until 07/26/2026 Uric acid Lab Routine Obesity (BMI 30-39.9) 1 Occurrences starting 07/26/2025 until 07/26/2026 Vitamin B1 Lab Routine Obesity (BMI 30-39.9) 1 Occurrences starting 07/26/2025 until 07/26/2026 Vitamin B12 Lab Routine Obesity (BMI 30-39.9) 1 Occurrences starting 07/26/2025 until 07/26/2026 Vitamin D 25 hydroxy Lab Routine Obesity (BMI 30-39.9) 1 Occurrences starting 07/26/2025 until 07/26/2026 documented as of this encounter Visit Diagnoses Diagnosis Obesity (BMI 30-39.9)- Primary Essential hypertension Unspecified essential hypertension Achilles tendon tear, right, sequela Type II or unspecified type diabetes mellitus with renal manifestations, 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.42) ([facility] V24, [facility] V28) Type II or unspecified type diabetes mellitus with renal manifestations, uncontrolled documented in this encounter Care Teams Medical Bill Processor Relationship Specialty Start Date End Date Physician, No Pcp PCP - General 04/28/25 documented as of this encounter
--- OUTSIDE RECORDS SUMMARY | 2025-07-26 16:55 | XMS_ITS | Encounter Summary ---
Author Organization [facility] Address [address] [place] [address] Care Team Providers Care Ux Architect Name Role Phone Physician, No Pcp Primary Care Provider Unavaila ble Reason for Referral * Consultation (Routine) - Pending Review Specialty Diagnoses / Procedures Referred By Contpaxton t Referred To Contact Gynecology Traci Traore MD [address] [place] [phone] Phone: tel: fax: [facility]/[employer] [facility] [address] [place] [address] Phone: tel: fax: Referral ID Status Reason Start Date Expiration Date Visits Requested Visits Authorized [id number] Pending Review Specialty Services Required 07/26/2025 07/26/2026 1 1 Reason for Visit * Reason Comments Hypertension Vaginal Bleeding Encounter Details Date Type Department Care Team (Late st Contact Info) Description 07/26/2025 4:55 PM EDT - 07/26/2025 8:59 PM EDT Emergency [facility] Emergency [address] [place] [phone] Traci Traore MD [address] [place] [id number] Kendal De MD [address] [place] [id number] Elevated blood pressure reading (Primary Dx); Acute nonintractable headache, unspecified headache type; Menorrhagia with irregular cycle Discharge Disposition: Home or Self Care Social History Tobacco Use Types Packs/Day Years [...] Sign Reading Time Taken Comments Blood Pressure 150/84 07/26/2025 6:41 PM EDT Pulse 75 07/26/2025 6:41 PM EDT Temperature 37 C (98.6 F) 07/26/2025 6:41 PM EDT Respiratory Rate 17 07/26/2025 6:41 PM EDT Oxygen Saturation 99% 07/26/2025 6:41 PM EDT Inhaled Oxygen Concentration - - Weight - - Height - - Body Mass Index - - documented in this encounter Discharge Instructions * Discharge Instructions* Traci Traore MD - 07/26/2025 6:34 PM EDT Today you were evaluated for elevated blood pressures. You also were noted to have a headache. Yourelevated blood pressure could be related to having pain. It is important for you to keep a log of your blood pressures to your primary care doctor can make decision regarding changing the dosing of your blood pressure medication. I have also referred you for gynecology for follow-up for further evaluation of abnormal uterine bleeding. * Attachments The following attachments cannot be sent through Care Everywhere. * Hypertension: General Info (Occitan) * Vaginal Bleeding ([place]) documented in this encounter Medications at Time of Discharge acetaminophen (Tylenol 8 Hour) 650 mg 8 hr tablet Take 1 tablet (650 mg total) by mouth every 8 (eight) hours if needed for mild pain. Do not crush, chew, or split. 30 tablet 3 06/21/2025 albuterol 2.5 mg /3 mL (0.083 %) nebulizer solution Take 1 Vial by nebulization every 4 hours as needed for Wheezing for up to 180 days. 12/31/2018 albuterol HFA (PROAIR HFA ; PROVENTIL HFA ; VENTOLIN HFA) 90 mcg/actuation inhaler Inhale 2 Puffs into the lungs 4 times daily as needed for Cough, Wheezing or Shortness of Breath. 12/31/2018 blood sugar diagnostic (FreeStyle Lite Strips) test strip To test sugars once a day prior to breakfast 05/28/2021 diclofenac (VOLTAREN) 1 % topical gel Apply 4 g topically 2 times daily. 11/25/2023 FREESTYLE LANCETS MISC To test sugars once a day prior to breakfast 05/28/2021 losartan (COZAAR) 50 mg tablet Take 1 tablet (50 mg total) by mouth 1 (one) time each day. 09/30/2021 metFORMIN XR (GLUCOPHAGE-XR) 500 mg 24 hr tablet Take 1 tablet (500 mg total) by mouth 1 (one) time each day with breakfast. 03/03/2022 oxyCODONE (ROXICODONE) 5 mg immediate release tablet Take 1 tablet (5 mg total) by mouth every 4 (four) hours if needed for severe pain. Max Daily Amount: 30 mg 15 tablet 05/26/2025 polyethylene glycol (MIRALAX) 17 gram packet Take 17 g by mouth daily for 90 days semaglutide (Ozempic) 0.25 mg or 0.5 mg(2 mg/1.5 mL) injection pen Inject 0.25 mg under the skin every 7 (seven) days. documented as of this encounter Discharge Disposition Disposition Code Departure Means Destination Comment s Home or Self Care documented in this encounter Progress Notes * Nano Cabrera RN - 07/26/2025 2:34 PM EDT Pt comes to ER with c/o a headache and high blood pressure since . Pt sates she started vaginally bleeding on and had a passed a large clot type material and stopped bleeding over the weekend but the bleeding as restarted today. Pt went to a dr appointment and her blood pressure was high and was instructed to come to ER. Pt a&ox4, ambulatory with steady gait in triage. documented in this encounter Plan of Treatment Upcoming Encounters Date Type Department Care Team (Late st Contact Info) Description 08/14/2025 9:45 AM EDT Office Visit Orthopedic Surgery - [place] [address] [facility] [address] [place] [phone] Gallito Hood, DPM 175 [facility] [address] [place] [phone] 08/18/2025 10:15 AM EDT Evaluation [facility] Outpatient Rehabilitation - [place] [address] [facility] [address] [place] [phone] Bessie Shoemaker, JULIANA 11/20/2025 1:00 PM EST Nutrition Bariatric Surgery - [place] 175 [facility] [address] [place] [phone] Minerva Shay, RD [address] [facility] [address] [place] [phone] Scheduled Referrals Name Type Priority Associated Diagnoses Order Schedule Ambulatory referral to Gynecology Outpatient Referral Routine 1 Occurrence s starting 07/26/2025 until 07/26/2026 documented as of this encounter Procedures Procedure Name Priority Date/Time Associated Diagnosis Comments CT HEAD WO CONTRAST STAT 07/26/2025 7 :33 PM EDT POC , URINE DIAGNOSTIC STAT 07/26/2025 7:17 PM EDT XR CHEST 2 VIEWS STAT 07/26/2025 6:52 PM EDT TROPONIN I HIGH SENSITIVITY Timed 07/26/2025 6:35 PM EDT HCG, SERUM, QUALITATIVE STAT Add-on 07/26/2025 6:35 PM EDT MAGNESIUM STAT 07/26/2025 6:35 PM EDT LIPASE STAT 07/26/2025 6:35 PM EDT COMPREHENSIVE METABOLIC PANEL STAT 07/26/2025 6:35 PM EDT ECG 12-LEAD STAT 07/26/2025 5:53 PM EDT URINALYSIS WITH REFLEX MICROSCOPIC STAT 07/26/2025 5:49 PM EDT BAH URINE CULTURE TUBE Routine 07/26/2025 5:49 PM EDT URINALYSIS WITH REFLEX MICROSCOPIC STAT 07/26/2025 5:49 PM EDT EXTRA TUBES Routine 07/26/2025 5:49 PM EDT TROPONIN I HIGH SENSITIVITY Timed 07/26/2025 5:48 PM EDT CBC WITH AUTO DIFFERENTIAL STAT 07/26/2025 5:48 PM EDT CBC AND DIFFERENTIAL STAT 07/26/2025 5:48 PM EDT B-TYPE NATRIURETIC PEPTIDE STAT 07/26/2025 5:48 PM EDT documented in this encounter Results * CT Head wo Contrast (07/26/2025 7:33 PM EDT) Anatomical Region Laterality Modality Head and Neck Computed Tomogra phy 07/26/2025 8:07 PM EDT Impressions 07/26/2025 8:07 PM EDT 1. No acute intracranial findings. This document has been electronically signed by: Mateo Hsu MD on 07/26/2025 20:07:15 Narrative 07/26/2025 8:07 PM EDT INDICATION: Headache, hypertension CT head without contrast Comparison: None provided Findings: No evidence for acute large territory infarct. No acute intracranial hemorrhage. No abnormal extra-axial collection. No midline shift. Basal cisterns are maintained. Normal ventricles. Partially empty sella. Paranasal sinuses are clear. Bilateral mastoid air cells and middle ears are clear. Calvarium and visualized facial bones are intact. Globes and orbits are unremarkable. Procedure Note Mateo Hsu MD - 07/26/2025 INDICATION: Headache, hypertension CT head without contrast Comparison: None provided Findings: No evidence for acute large territory infarct. No acute intracranial hemorrhage. No abnormal extra-axial collection. No midline shift. Basal cisterns are maintained. Normal ventricles. Partially empty sella. Paranasal sinuses are clear. Bilateral mastoid air cells and middle ears are clear. Calvarium and visualized facial bones are intact. Globes and orbits are unremarkable. IMPRESSION: 1. No acute intracranial findings. This document has been electronically signed by: Mateo Hsu MD on 07/26/2025 20:07:15 us Traci Traore MD IMG CT PROCEDURES Final Result * POC , urine manually resulted (07/26/2025 7:17 PM EDT) HCG, Ur POC Negative Negative POC hCG Int QC Pass? Yes Yes Urine Urine specimen obtained by clean catch procedure / Unknown 07/26/2025 7:17 PM EDT us Traci Traore MD POINT OF CARE TEST ENTER/EDIT OR DERABLES Final Result * XR Chest 2 Views (07/26/2025 6:52 PM EDT) Anatomical Region Laterality Modality Body Radiographic Laura ging 07/27/2025 9:19 AM EDT Impressions 07/27/2025 9:19 AM EDT FINDINGS/IMPRESSION: Lungs are clear. No pleural effusion or pneumothorax. Cardiac silhouette and bones are within normal limits. -------- FINAL REPORT -------- Dictated By: WOJCIECH BUCK Dictated Date: 07/27/2025 09:19 ET Assigned Physician: WOJCIECH BUCK Reviewed and Electronically Signed By: WOJCIECH BUCK Signed Date: 07/27/2025 09:19 ET Workstation ID: [id number] Transcribed By: Self Edit Transcribed Date: 07/27/2025 09:19 ET Narrative 07/27/2025 9:19 AM EDT XR CHEST 2 VIEWS INDICATION: Chest pain TECHNIQUE: XR CHEST 2 VIEWS COMPARISON: 10/18/2024 Procedure Note Wojciech Buck MD - 07/27/2025 XR CHEST 2 VIEWS INDICATION: Chest pain TECHNIQUE: XR CHEST 2 VIEWS COMPARISON: 10/18/2024 IMPRESSION: FINDINGS/IMPRESSION: Lungs are clear. No pleural effusion orpneumothorax. Cardiac silhouette and bones are within normal limits. -------- FINAL REPORT -------- Dictated By: WOJCIECH BUCK Dictated Date: 07/27/2025 09:19 ET Assigned Physician: WOJCIECH BUCK Reviewed and Electronically Signed By: WOJCIECH BUCK Signed Date: 07/27/2025 09:19 ET Workstation ID: [id number] Transcribed By: Self Edit Transcribed Date: 07/27/2025 09:19 ET us Traci Traore MD IMG XR PROCEDURES Final Result * hCG, serum, qualitative (07/26/2025 6:35 PM EDT) hCG Qual Negative Negative 07/26/2025 8:05 PM EDT [facility] Blood Venous blood specimen / Unknown Venipuncture / Unknown 07/26/2025 6:35 PM EDT 07/26/2025 7:10 PM EDT us Traci Traore MD LAB BLOOD ORDERABLES Final Resul t [facility] [address] [place] [address], [place] [phone] * Magnesium (07/26/2025 6:35 PM EDT) [facility] Magnesium 1.9 1.9 - 2.6 mg/dL LAB CHEMISTRY METHOD 07/26/2025 7:46 PM EDT [facility] Blood Venous blood specimen / Unknown Venipuncture / Unknown 07/26/2025 6:35 PM EDT 07/26/2025 7:10 PM EDT us Traci Traore MD LAB BLOOD ORDERABLES Final Resul t Performing Organization Address City/[facility]/ZIP Co de Phone Number [facility] [address] [place] [address], [place] [phone] * Lipase (07/26/2025 6:35 PM EDT) [facility] Lipase 38 13 - 75 unit/L LAB CHEMISTRY METHOD 07/26/2025 7:46 PM EDT [facility] Blood Venous blood specimen / Unknown Venipuncture / Unknown 07/26/2025 6:35 PM EDT 07/26/2025 7:10 PM EDT us Traci Traore MD LAB BLOOD ORDERABLES Final Resul t Performing Organization Address [facility]/ZIP Co de Phone Number [facility] [address] [place] [address], [place] [phone] * (ABNORMAL) Comprehensive metabolic panel (07/26/2025 6:35 PM EDT) [facility] Sodium 137 133 - 145 mmol/L LAB CHEMISTRY METHOD 07/26/2025 7:47 PM EDT [facility] Potassium 3.8 3.5 - 5.5 mmol/L LAB CHEMISTRY METHOD 07/26/2025 7:47 PM EDT [facility] Chloride 105 96 - 110 mmol/L LAB CHEMISTRY METHOD 07/26/2025 7:47 PM EDT [facility] CO2 29 21 - 32 mmol/L LAB CHEMISTRY METHOD 07/26/2025 7:47 PM [facility] Anion Gap 3 3 - 11 LAB CHEMISTRY METHOD 07/26/2025 7:47 PM [facility] Glucose 102(H) 70 - 100 mg/dL LAB CHEMISTRY METHOD 07/26/2025 7:47 PM [facility] BUN 11 5 - 25 mg/dL LAB CHEMISTRY METHOD 07/26/2025 7:47 PM [facility] Creatinine 0.72 0.50 - 1.10 mg/dL LAB CHEMISTRY METHOD 07/26/2025 7:47 PM [facility] eGFR 106 >=60 mL/min/1. 73m2 LAB CHEMISTRY METHOD 07/26/2025 7:47 PM [facility] Comment:Calculation based on the Chronic Kidney Disease Epidemiology Collaboration (CKD-EPI) equation refit without adjustment for race. BUN/Creatinine Ratio 15.3 LAB CHEMISTRY METHOD 07/26/2025 7:47 PM [facility] Calcium 8.9 8.5 - 10.5 mg/dL LAB CHEMISTRY METHOD 07/26/2025 7:47 PM [facility] AST (SGOT) 17 10 - 42 unit/L LAB CHEMISTRY METHOD 07/26/2025 7:47 PM [facility] ALT (SGPT) 18 10 - 60 unit/L LAB CHEMISTRY METHOD 07/26/2025 7:47 PM [facility] Alkaline Phosphatase 50 42 - 121 unit/L LAB CHEMISTRY METHOD 07/26/2025 7:47 PM [facility] Total Protein 6.8 6.0 - 8.0 g/dL LAB CHEMISTRY METHOD 07/26/2025 7:47 PM [facility] Albumin 3.6 3.2 - 5.0 g/dL LAB CHEMISTRY METHOD 07/26/2025 7:47 PM [facility] Total Bilirubin 0.2 0.0 - 1.4 mg/dL LAB CHEMISTRY METHOD 07/26/2025 7:47 PM EDT [facility] Blood Venous blood specimen / Unknown Venipuncture / Unknown 07/26/2025 6:35 PM EDT 07/26/2025 7:10 PM EDT us Traci Traore MD LAB BLOOD ORDERABLES Final Resul t Performing Organization Address [facility] de Phone Number [facility] [address] [place] [address], [place] [phone] * Troponin I high sensitivity (07/26/2025 6:35 PM EDT) [facility] High Sensitivity Troponin I 6 <=54 ng/L LAB CHEMISTRY METHOD 07/26/2025 7:46 PM EDT [facility] Blood Venous blood specimen / Unknown Venipuncture / Unknown 07/26/2025 6:35 PM EDT 07/26/2025 7:09 PM EDT Narrative [facility] - 07/26/2025 7:46 PM EDT High levels of biotin in samples may falsely decrease hsTroponin values. Use caution when interpreting hsTroponin results in patients taking biotin who exhibit renal impairment (eGFR <60) or in patients taking more than 20 mg/day of biotin. us Traci Traore MD LAB BLOOD ORDERABLES Final Resul t Performing Organization Address [facility] Co de Phone Number [facility] [address] [place] [address], [place] [phone] * ECG 12 lead (07/26/2025 5:53 PM EDT) [facility] Ventricular Rate ECG 76 BPM GEMUSE Atrial Rate 76 BPM GEMUSE P-R Interval 134 ms GEMUSE QRS Duration 84 ms GEMUSE Q-T Interval 398 ms GEMUSE QTc 447 ms GEMUSE P Wave [place] 11 degrees GEMUSE R [place] -7 degrees GEMUSE T [place] 9 degrees GEMUSE ECG Interpretation Normal sinus rhythm Moderate voltage criteria for LVH, may be normal variant ( R in aVL , Chase product ) When compared with ECG of 07-JAN-2020 11:36, No significant change was found Confirmed by CESAR PINO ([id number]) on 07/26/2025 8:12:39 PM GEMUSE 07/26/2025 5:53 PM EDT 07/26/2025 8:12 PM EDT us Traci Traore MD ECG ORDERABLES Final Result GEMUSE * Bah urine culture tube (07/26/2025 5:49 PM EDT) [facility] Extra Tube Hold for add-ons. 07/26/2025 8:01 PM EDT [facility] Comment:Auto resulted. Urine Urine specimen obtained by clean catch procedure / Unknown 07/26/2025 5:49 PM EDT 07/26/2025 6:03 PM EDT Traci Traore MD LAB URINE ORDERABLES Final Resul t Performing Organization Address [facility]/ZIP Co de Phone Number [facility] [address] [place] [address], [place] [phone] * (ABNORMAL) Urinalysis with reflex microscopic (07/26/2025 5:49 PM EDT) [facility] Specific [place] Urine 1.025 1.003 - 1.030 LAB URINALYSIS - AUTOMATED METHOD 07/26/2025 6:11 PM EDT [facility] pH, Urine 6.0 5.0 - 8.0 pH LAB URINALYSIS - AUTOMATED METHOD 07/26/2025 6:11 PM EDT [facility] Leukocytes, Urine Trace(A) Negative LAB URINALYSIS - AUTOMATED METHOD 07/26/2025 6:11 PM EDT [facility] Nitrite, Urine Negative Negative LAB URINALYSIS - AUTOMATED METHOD 07/26/2025 6:11 PM [facility] Protein, Urine 30(A) <=Trace mg/dL LAB URINALYSIS - AUTOMATED METHOD 07/26/2025 6:11 PM [facility] Glucose, Urine Negative Negative mg/dL LAB URINALYSIS - AUTOMATED METHOD 07/26/2025 6:11 PM [facility] Ketones, Urine Negative Negative mg/dL LAB URINALYSIS - AUTOMATED METHOD 07/26/2025 6:11 PM [facility] Urobilinogen , Urine 1.0 0.2 - 1.0 mg/dL LAB URINALYSIS - AUTOMATED METHOD 07/26/2025 6:11 PM [facility] Bilirubin, Urine Negative Negative LAB URINALYSIS - AUTOMATED METHOD 07/26/2025 6:11 PM [facility] Blood, Urine Moderate(A) Negative LAB URINALYSIS - AUTOMATED METHOD 07/26/2025 6:11 PM [facility] RBC, Urine 2.9 0 - 4 /HPF LAB URINALYSIS - AUTOMATED METHOD 07/26/2025 6:11 PM [facility] WBC, Urine 3.8 0 - 4 /HPF LAB URINALYSIS - AUTOMATED METHOD 07/26/2025 6:11 PM [facility] Squamous Epithelial, Urine >100(H) 0 - 60 /LPF LAB URINALYSIS - AUTOMATED METHOD 07/26/2025 6:11 PM [facility] Bacteria, Urine Negative Negative /HPF LAB URINALYSIS - AUTOMATED METHOD 07/26/2025 6:11 PM [facility] Hyaline Casts, Urine 3.2(H) 0 - 3 /LPF LAB URINALYSIS - AUTOMATED METHOD 07/26/2025 6:11 PM [facility] Urine Urine specimen obtained by clean catch procedure / Unknown Non-blood Collection / Unknown 07/26/2025 5:49 PM EDT 07/26/2025 6:03 PM EDT us Traci Traore MD LAB URINE ORDERABLES Final Resul t [facility] [address] [place] [address], * CBC auto differential (07/26/2025 5:48 PM EDT) WBC 7.8 4.8 - 10.8 K/mcL LAB HEMETOLOGY METHOD 07/26/2025 6:10 PM EDT [facility] RBC 4.60 3.80 - 4.80 M/mcL LAB HEMETOLOGY METHOD 07/26/2025 6:10 PM EDT [facility] Hemoglobin 13.5 11.5 - 16.0 g/dL LAB HEMETOLOGY METHOD 07/26/2025 6:10 PM EDT [facility] Hematocrit 40.0 35.0 - 47.0 % LAB HEMETOLOGY METHOD 07/26/2025 6:10 PM EDT [facility] MCV 86.2 79.0 - 98.0 FL LAB HEMETOLOGY METHOD 07/26/2025 6:10 PM EDT [facility] MCH 29.1 27.0 - 32.0 pcg LAB HEMETOLOGY METHOD 07/26/2025 6:10 PM EDT [facility] MCHC 33.8 32.0 - 37.0 g/dL LAB HEMETOLOGY METHOD 07/26/2025 6:10 PM EDT [facility] RDW 12.8 11.0 - 15.0 % LAB HEMETOLOGY METHOD 07/26/2025 6:10 PM EDT [facility] Platelets 337 130 - 400 K/mcL LAB HEMETOLOGY METHOD 07/26/2025 6:10 PM EDT [facility] MPV 10.2 7.0 - 11.0 FL LAB HEMETOLOGY METHOD 07/26/2025 6:10 PM EDT [facility] NRBC 0.0 <1.0 % LAB HEMETOLOGY METHOD 07/26/2025 6:10 PM EDT [facility] NRBC Absolute 0.00 <0.10 K/mcL LAB HEMETOLOGY METHOD 07/26/2025 6:10 PM EDT [facility] Neutrophils Relative 58.3 % LAB HEMETOLOGY METHOD 07/26/2025 6:10 PM EDT [facility] Lymphocytes Relative 30.0 % LAB HEMETOLOGY METHOD 07/26/2025 6:10 PM EDT [facility] Monocytes Relative 7.7 % LAB HEMETOLOGY METHOD 07/26/2025 6:10 PM EDT [facility] Eosinophils Relative 3.1 % LAB HEMETOLOGY METHOD 07/26/2025 6:10 PM EDT [facility] Basophils Relative 0.6 % LAB HEMETOLOGY METHOD 07/26/2025 6:10 PM EDT [facility] Immature Granulocytes Relative 0.3 % LAB HEMETOLOGY METHOD 07/26/2025 6:10 PM EDT [facility] Neutrophils Absolute 4.55 1.50 - 7.00 K/mcL LAB HEMETOLOGY METHOD 07/26/2025 6:10 PM EDT [facility] Lymphocytes Absolute 2.34 1.00 - 5.00 K/mcL LAB HEMETOLOGY METHOD 07/26/2025 6:10 PM EDT [facility] Monocytes Absolute 0.60 0.20 - 1.00 K/mcL LAB HEMETOLOGY METHOD 07/26/2025 6:10 PM EDT [facility] Eosinophils Absolute 0.24 0.00 - 0.50 K/mcL LAB HEMETOLOGY METHOD 07/26/2025 6:10 PM EDT [facility] Basophils Absolute 0.05 0.00 - 0.20 K/[facility] LAB HEMETOLOGY METHOD 07/26/2025 6:10 PM EDT [facility] Immature Granulocytes Absolute 0.02 0.00 - 0.03 K/[facility] HEMETOLOGY METHOD 07/26/2025 6:10 PM EDT [facility] Blood Venous blood specimen / Unknown Venipuncture / Unknown 07/26/2025 5:48 PM EDT 07/26/2025 6:04 PM EDT us Traci Traore MD LAB BLOOD ORDERABLES Final Resul t Performing Organization Address City/[facility]/ZIP Co de Phone Number [facility] [address] [place] [address], [place] [phone] * B-type natriuretic peptide (07/26/2025 5:48 PM EDT) [facility] BNP 7 <=100 pcg/mL LAB CHEMISTRY METHOD 07/26/2025 6:50 PM EDT [facility] Blood Venous blood specimen / Unknown Venipuncture / Unknown 07/26/2025 5:48 PM EDT 07/26/2025 6:04 PM EDT us Traci Traore MD LAB BLOOD ORDERABLES Final Resul t [facility] [address] [place] [address], [place] [phone] * Troponin I high sensitivity (07/26/2025 5:48 PM EDT) High Sensitivity Troponin I 5 <=54 ng/L LAB CHEMISTRY METHOD 07/26/2025 6:37 PM EDT [facility] Blood Venous blood specimen / Unknown Venipuncture / Unknown 07/26/2025 5:48 PM EDT 07/26/2025 6:04 PM EDT Narrative [facility] - 07/26/2025 6:37 PM EDT High levels of biotin in samples may falsely decrease hsTroponin values. Use caution when interpreting hsTroponin results in patients taking biotin who exhibit renal impairment (eGFR <60) or in patients taking more than 20 mg/day of biotin. us Traci Traore MD LAB BLOOD ORDERABLES Final Resul t [facility] [address] [place] [address], [place] [phone] documented in this encounter Visit Diagnoses Diagnosis Elevated blood pressure reading- Primary Elevated blood pressure reading without diagnosis of hypertension Acute nonintractable headache, unspecified headache type Menorrhagia with irregular cycle documented in this encounter Administered Medications Inactive Administered Medications - up to 3 most recent administrations Medication Order MAR Action Action Date Dose Rate Site metoclopramide (REGLAN) injection 10 mg 10 mg, intravenous, Once, On Thu07/26/25 at 1739, For 1 dose, Doses LESS than or equal to 10 mg can be given IV push undiluted over 1 minute Given 07/26/2025 5:58 PM EDT 10 mg documented in this encounter Active and Recently Administered Medications Times are shown in EDT. Scheduled Medication Order 07/24/2025 07/25/2025 07/26/2025 metoclopramide (REGLAN) injection 10 mg (COMPLETED) 10 mg, intravenous, Once, On Thu07/26/25 at 1739, For 1 dose, Doses LESS than or equal to 10 mg can be given IV push undiluted over 1 minute 1758 (Given - Provid er: Kaylee Dorsey RN) documented in this encounter Orders Medications Ordered That Stephen ht Not Have Been Administered Count Last Ordered Date First Ordered Date metoclopramide (REGLAN) injection 10 mg 1 0 07/26/2025 documented in this encounter Care Teams Ux Architect Relationship Specialty Start Date End Date Physician, No Pcp PCP - General 04/28/25 documented as of this encounter
--- NOTE | 2025-07-31 15:23 | MHC.OFFVIS ---
Intake Visit Reasons: ov- RT Knee Pain Intake Note: Cathi is a 45 year old female who presents today for a follow up of right knee pain. Patient was seen with Dr. Verdin on 02/08/24 for her right knee OA, an injection was given. Today patient reports that the previous injection helped for about 2 months. Currently she has constant pain located at the anterior aspect of knee. States that she is unable to bend down, and complains of difficulty with stair use, stating her knee feels unstable. She mentions a recent foot surgery that was performed in April. Allergies latex (LATEX) Allergy (Intermediate, Verified 07/31/25 15:37) BURNING SKIN povidone-iodine (From BETADINE) Allergy (Intermediate, Verified 07/31/25 15:37) PONCE SKIN soap (From BETADINE) Allergy (Intermediate, Verified 07/31/25 15:37) PONCE SKIN tramadol (TRAMADOL) Allergy (Mild, Verified 07/31/25 15:37) RASH benadine Allergy (Unknown, Uncoded 07/31/25 15:37) Unknown codeine Allergy (Unknown, Uncoded 07/31/25 15:37) Unknown latex Allergy (Unknown, Uncoded 07/31/25 15:37) Unknown tramadol Allergy (Unknown, Uncoded 07/31/25 15:37) Unknown Medication List - Last Reconciled 07/31/25 by Nicola Maldonado PA-C losartan 50 mg PO DAILY meloxicam 15 mg PO DAILY pantoprazole 20 mg PO DAILY semaglutide (Ozempic) mg subcut HPI HPI ov- RT Knee Pain: Details: 45-year-old female returns to the office today for a follow-up right knee pain. She had previously seen Dr. Verdin and had a steroid injection which was helpful for a short period of time. She continues to have discomfort along the anterior portion of her knee which is worse with stairs and prolonged walking. [facility] Medical History (Updated 08/06/24 @ 11:14 by Leena George NP) Lottie's deformity of right heel Surgical History (Updated 07/31/25 @ 15:29 by ERNESTO Santos) Hx of foot surgery Social History (Updated 07/31/25 @ 15:29 by ERNESTO Santos) Current occupational status: unemployed Current occupation: right hand dominant Review of Systems Const All systems reviewed & are unremarkable except as noted in HPI and below Physical Exam Const General: no acute distress and alert Orientation/consciousness: patient oriented x3 Neuro General: patient oriented x3 Extrem Other: Right Knee: TTP mostly over medial compartment - Hue's Psych Appearance: grossly normal Affect: normal affect Attitude: cooperative Assessment & Plan Assessment & Plan (1) Osteoarthritis of right knee: Code(s): M17.11 - Unilateral primary osteoarthritis, right knee Category: Medical Plan: We discussed options today which include repeat steroid injection which she would like to hold off on. I did also discuss gel injections along with genicular injections. She would like to trial the gel injections which we will obtain authorization for. I did put in a referral for pain management for her to have a discussion about the potential benefits of genicular nerve injections. Once the authorization for gel is approved I will see her back. Orders: Referrals Pain Management Referral M17.11 - Unilateral primary osteoarthritis, right knee Coding Level of Care Code Est Pt Level 3 (27671) Complex EM visit Add On G2211 Diagnoses Osteoarthritis of right knee M17.11
--- OUTSIDE RECORDS SUMMARY | 2025-07-31 20:41 | XMS_ITS | Encounter Summary ---
Author Organization [facility] Address [address] [place] [address] Care Team Providers Care Gear Grinding Machine Operator Name Role Phone Chalino Valenzuela MD Primary Care Provider [phone] [facility], Pcp Primary Care Provider Unavailabl e Encounter Details Date Type Department Care Team Description 07/08/2017 [facility] Medical Records [address] [place] [id number] Abstract, Provider Social History Tobacco Use Types Packs/Day Years Used Date Smoking Tobacco: Never Smokeless Tobacco: Never Alcohol Use Standard Drinks/Week Comments Yes 0 (1 standard drink = 0.6 oz pur e alcohol) OCC. Sex Assigned at Date Recorded Not on file Job Start Date Occupation Industry Not on file Not on file Not on file documented as of this encounter Plan of Treatment Not on file documented as of this encounter Visit Diagnoses Not on filedocumented in this encounter Care Teams Gear Grinding Machine Operator Relationship Specialty Start Date End Date Chalino Valenzuela MD [address] [place] [address] [phone] PCP - General Internal Medicine 03/09/13 11/19/22 [facility], Pcp [address] [place] [phone] PCP - General Internal Medicine 11/20/22 documented as of this encounter
--- OUTSIDE RECORDS SUMMARY | 2025-07-31 20:41 | XMS_ITS | Clinical Summary ---
Author Organization 175 [facility] Address [address] [place] [address] Phone Care Team Providers Care Central Sterilization Technician Name Role Phone Physician, No Pcp Primary Care Provider Unavaila ble Allergies Active Allergy Reactions Criticality Noted Date Comments Adhesive Tape-Silicones Rash Low 10/01/2022 Codeine Irritable Medium 04/04/2013 Percocet, tramadol- makes her aggressive and itchy and nervous Latex Hives,Rash Low 06/30/2013 Tramadol Anxiety Low 01/10/2025 Medications diclofenac (VOLTAREN) 1 % topical gel Apply 4 g topically 2 times daily. 4 Active metFORMIN XR (GLUCOPHAGE-XR ) 500 mg 24 hr tablet Take 1 tablet (500 mg total) by mouth 1 (one) time each day with breakfast. 2 Active losartan (COZAAR) 50 mg tablet Take 1 tablet (50 mg total) by mouth 1 (one) time each day. 1 Active albuterol HFA (PROAIR HFA ; PROVENTIL HFA ; VENTOLIN HFA) 90 mcg/actuation inhaler Inhale 2 Puffs into the lungs 4 times daily as needed for Cough, Wheezing or Shortness of Breath. 9 Active albuterol 2.5 mg /3 mL (0.083 %) nebulizer solution Take 1 Vial by nebulization every 4 hours as needed for Wheezing for up to 180 days. 9 Active FREESTYLE LANCETS MISC To test sugars once a day prior to breakfast 1 Active blood sugar diagnostic (FreeStyle Lite Strips) test strip To test sugars once a day prior to breakfast 1 Active polyethylene glycol (MIRALAX) 17 gram packet Take 17 g by mouth daily for 90 days Active semaglutide (Ozempic) 0.25 mg or 0.5 mg(2 mg/1.5 mL) injection pen Inject 0.25 mg under the skin every 7 (seven) days. Active apixaban (Eliquis) 2.5 mg tablet Take 1 tablet (2.5 mg total) by mouth 2 (two) times a day. 60 each 5 Active gabapentin (NEURONTIN) 400 mg capsule Take 1 capsule (400 mg total) by mouth at bedtime as needed (throbbing pain). 30 each 5 Active oxyCODONE (ROXICODONE) 5 mg immediate release tablet Take 1 tablet (5 mg total) by mouth every 4 (four) hours if needed for severe pain. Max Daily Amount: 30 mg 15 tablet 5 Active acetaminophen (Tylenol 8 Hour) 650 mg 8 hr tablet Take 1 tablet (650 mg total) by mouth every 8 (eight) hours if needed for mild pain. Do not crush, chew, or split. 30 tablet 3 5 08/20/20 25 Active oxyCODONE (ROXICODONE) 5 mg immediate release tablet Take 1 tablet (5 mg total) by mouth every 4 (four) hours if needed for severe pain for up to 7 days. 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 Achilles tendon tear, right, sequela 01/11/2025 Tendonitis, Achilles, right 01/11/2025 Class 3 severe obesity with body mass index (BMI) of 40.0 to 44.9 in adult ([facility] V24, [facility] V28) 08/19/2024 Microalbuminuria 05/29/2021 Type II or unspecified type diabetes mellitus with renal manifestations, 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.42) ([facility] V24, [facility] V28) 05/29/2021 Essential hypertension 08/24/2019 Low grade squamous intraepit h lesion on cytologic smear cervix (lgsil) 04/27/2017 Overview (08/19/2024): 03/13/17 LSIL 04/24/17 IVETTE 1 10/19/20 ASC-H HR-HPV + neg 18/45 01/29/2021 IVETTE 1 10/31/2021 NSIL HRHPV neg Chronic headaches 12/27/2014 Migraines 12/27/2014 Neck pain 12/27/2014 Encounters Date Type Department Care Team Description 07/26/2025 4:55 PM EDT - 07/26/2025 8:59 PM EDT Emergency Emergency [address] [place] [phone] Traci Traore MD Granzo, Daniela, MD Elevated blood pressure reading (Primary Dx); Acute nonintractable headache, unspecified headache type; Menorrhagia with irregular cycle Discharge Disposition: Home or Self Care 07/26/2025 1:45 PM EDT Office Visit Bariatric Surgery [facility] 175 [facility] [address] [place] [phone] Zabrina Scales MD Obesity (BMI 30-39.9) (Primary Dx); Essential hypertension; Achilles tendon tear, right, sequela; Type II or unspecified type diabetes mellitus with renal manifestations, 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.42) ([facility] V24, [facility] V28) 07/26/2025 Telephone Orthopedic Surgery [facility] [address] [phone] Gallito Hood DPM 07/06/2025 9:00 AM EDT Office Visit Orthopedic [facility] [address] [phone] Gallito Hood DPM Achilles tendon tear, right, sequela (Primary Dx) 06/21/2025 9:45 AM EDT Office Visit Orthopedic [facility] [address] [phone] Gallito Hood DPM Post-operative state (Primary Dx) 05/10/2025 Telephone Orthopedic Surgery [facility] [address] [phone] Zoraida Booth 05/08/2025 10:15 AM EDT Office Visit Orthopedic Surgery [facility] 250 [address] [facility] [address] [place] [phone] Gallito Hood DPM Post-operative state (Primary Dx) from Last 3 Months Immunizations Name Administration Dates Next Due Influenza Quadravalent, MDCK , 0.5ml, preservative free (Flucelvax) 6mo and older 09/30/2021 Pfizer (ages 12 & older) Bivalent, COVID-19 09/17 Pneumococcal polysaccharide 23 valent (Pneumovax 23) 2yo and older 09/30/2021 Tdap Tetanus diptheria acell ular pertussis (Boostrix; Adacel) 7yo and older 05/28/2021 Surgical History Surgery Date Site/Laterality Comments OTHER SURGICAL HISTORY PROCEDURE: HISTORICAL ARM SURGERY; COMMENT: humerous fx internal fixation OTHER SURGICAL HISTORY 04/29/2021 PROCEDURE: CERVICAL LEEP CONE BIOPSY SPCMN PATHOLOGY EX Medical History Medical History Date Comments Asthma DX:Asthma Diabetes mellitus type 2, co ntrolled, with complications (CMS/HCC V24, CMS/HCC V28) DX:Diabetes mellitus type 2, controlled, with complications ([facility]) Essential hypertension DX:Essent ial hypertension Family History Medical History Relation Name Comments Lung cancer Aunt 1 paternal aunt-s moker Lung cancer Aunt 2 paternal aunt-s moker Other: cancer,other Aunt 3 paternal aunt-widespread mets, ? primary Diabetes Brother Heart attack Father Diabetes Mother HTN Breast cancer Sister Relation Name Status Comments Aunt 1 Aunt 2 Aunt 3 Brother Father Mother Sister Social History Tobacco Use Types Packs/Day Years Used Date Smoking Tobacco: Never Smokeless Tobacco: Never Tobacco Cessation:Counseling Given: Not Answered Alcohol Use Standard Drinks/Week Comments Yes 0 [...] Orientation Straight 01/10/2025 5: 11 PM EST Obstetrics History Last Filed Vital Signs Vital Sign Reading Time Taken Comments Blood Pressure 150/84 07/26/2025 6:41 PM EDT Pulse 75 07/26/2025 6:41 PM EDT Temperature 37 C (98.6 F) 07/26/2025 6:41 PM EDT Respiratory Rate 17 07/26/2025 6:41 PM EDT Oxygen Saturation 99% 07/26/2025 6:41 PM EDT Inhaled Oxygen Concentration - - Weight 102 kg (225 lb) 07/26/2025 1:51 PM EDT Height 160 cm (5' 3 ) 07/26/2025 1:51 PM EDT Body Mass Index 39.86 07/26/2025 1:51 PM EDT Plan of Treatment Upcoming Encounters Date Type Department Care Team (Late st Contact Info) Description 08/14/2025 9:45 AM EDT Office Visit Orthopedic [facility] [place] [address] [phone] Gallito Hood, DPM [address] [phone] 08/18/2025 10:15 AM EDT Evaluation [facility] [place] [address] [phone] Bessie Shoemaker, PT 11/20/2025 1:00 PM EST Nutrition Bariatric Surgery - [place] [address] [phone] Minerva Shay, RD 175 [facility] [address] [place] [phone] Health Maintenance Due Date Last Done Comments Diabetes: Annual Foot Exam 1991 Diabetes: Annual Retina Eye Exam 1991 Hepatitis B Vaccines (1 of 3 - 19+ 3-dose series) 2000 Pneumococcal Vaccine: Pediatrics (0 to 5 Years) and At-Risk Patients (6 to 49 Years) (2 of 2 - PCV) 09/30/2022 09/30/2021 Social Influencers of Health Screening 10/25/2022 Diabetes: Annual Urine Albumin-Creatinine Ratio (uACR) 10/26/2022 05/29/2021 Breast Cancer Screening 06/11/2023 06/11/2021, 06/05 Depression Screening 11/16/2024 Diabetes: Blood Sugar Control Test (HGBA1C) 02/27/2025 08/29/2024, 09/30/2021 COVID-19 Vaccine ( season) 2025 10/06/2022, 10/06/2022, 12/26/2021, Additional history exists Influenza Vaccine (#1) 2025 09/30/2021 Diabetes: Annual GFR (Glomerular Filtration Rate) 07/26/2026 07/26/2025, 01/10/2025, 08/29/2024, Additional history exists Hypertension/CHF/CAD Annual BMP Blood Test 07/26/2026 07/26/2025, 01/10/2025, 08/29/2024, Additional history exists Cervical Cancer Screening: HPV 10/31/2026 10/31/2021 Cholesterol Screening (Lipid Panel) 08/29/2029 08/29/2024, 09/30/2021 DTaP,Tdap,and Td Vaccines (2 - Td or Tdap) 05/28/2031 05/28/2021 HIV Screening Completed 10/31/2021 Hepatitis C Screening Completed 10/31/2021 HIB Vaccines Aged Out No longer eligi ble based on patient's age to complete this topic HPV Vaccines Aged Out No longer eligi ble based on patient's age to complete this topic Hepatitis A Vaccines Aged Out No long er eligible based on patient's age to complete this topic IPV Vaccines Aged Out No longer eligi ble based on patient's age to complete this topic MMR Vaccines Aged Out No longer eligi ble based on patient's age to complete this topic Meningococcal ACWY Vaccine Aged Out N o longer eligible based on patient's age to complete this topic Meningococcal B Vaccine Aged Out No l onger eligible based on patient's age to complete this topic RSV Immunization Patients Under 20 months Aged Out No longer eligible based on patient's age to complete this topic Varicella Vaccines Aged Out No longer eligible based on patient's age to complete this topic Medical Devices Implanted Type Area Plisse Machine Operator Device Identifier Shelf Expiration Date Model / Serial / Lot Implant Bioinductive W/Arth Kuldeep [facility] - [id number] Implanted:Qty: 1 on 04/28/2025 by Gallito Hood DPM at [facility] [employer] Right: Ankle [employer]PHEW - ENDOSCOPY 01/05/2028 [id number] / NA / [id number] Ultrabridge Kit Implanted:Qty: 1 on 04/28/2025 by Gallito Hood DPM at [facility] Right: Ankle [employer] 12/28/2027 [id number] / NA / [id number] Procedures Procedure Name Priority Date/Time Associated Diagnosis Comments CT HEAD WO CONTRAST STAT 07/26/2025 7 :33 PM EDT POC , URINE DIAGNOSTIC STAT 07/26/2025 7:17 PM EDT XR CHEST 2 VIEWS STAT 07/26/2025 6:52 PM EDT HCG, SERUM, QUALITATIVE STAT Add-on 07/26/2025 6:35 PM EDT MAGNESIUM STAT 07/26/2025 6:35 PM EDT LIPASE STAT 07/26/2025 6:35 PM EDT COMPREHENSIVE METABOLIC PANEL STAT 07/26/2025 6:35 PM EDT TROPONIN I HIGH SENSITIVITY Timed 07/26/2025 6:35 PM EDT ECG 12-LEAD STAT 07/26/2025 5:53 PM EDT BAH URINE CULTURE TUBE Routine 07/26/2025 5:49 PM EDT EXTRA TUBES Routine 07/26/2025 5:49 PM EDT URINALYSIS WITH REFLEX MICROSCOPIC STAT 07/26/2025 5:49 PM EDT URINALYSIS WITH REFLEX MICROSCOPIC STAT 07/26/2025 5:49 PM EDT CBC WITH AUTO DIFFERENTIAL STAT 07/26/2025 5:48 PM EDT B-TYPE NATRIURETIC PEPTIDE STAT 07/26/2025 5:48 PM EDT CBC AND DIFFERENTIAL STAT 07/26/2025 5:48 PM EDT TROPONIN I HIGH SENSITIVITY Timed 07/26/2025 5:48 PM EDT XR FOOT 3+ VIEWS RIGHT Routine 06/21/2025 10:27 AM EDT Post-operative state XR FOOT 3+ VIEWS RIGHT Routine 05/08/2025 10:34 AM EDT Post-operative state HM HPV Routine 10/31/2021 HM HEPATITIS C SCREENING Routine 10/31/2021 HM HIV SCREENING Routine 10/31/2021 HEMOGLOBIN A1C Routine 09/30/2021 LIPID PANEL Routine 09/30/2021 DIAGNOSTIC MAMMOGRAPHY WITH CAD UNILATERAL Routine 06/11/2021 2:01 PM EDT Other abnormal and inconclusive findings on diagnostic imaging of breast HM URINE ALBUMIN CREATININE RATIO Routine 05/29/2021 from Last 3 Months or Most Recently Relevant to Health Maintenance Results * CT Head wo Contrast (07/26/2025 [...] -------- FINAL REPORT -------- Dictated By: WOJCIECH VAZQUEZ Dictated Date: 07/27/2025 09:19 ET Assigned Physician: WOJCIECH VAZQUEZ Reviewed and Electronically Signed By: WOJCIECH VAZQUEZ Signed Date: 07/27/2025 09:19 ET Workstation ID: [id number] Transcribed By: Self Edit Transcribed Date: 07/27/2025 09:19 ET Narrative 07/27/2025 9:19 AM EDT XR CHEST 2 VIEWS INDICATION: Chest pain TECHNIQUE: XR CHEST 2 VIEWS COMPARISON: 10/18/2024 Procedure Note Wojciech Vazquez MD - 07/27/2025 XR CHEST 2 VIEWS INDICATION: Chest pain TECHNIQUE: XR CHEST 2 VIEWS COMPARISON: 10/18/2024 IMPRESSION: FINDINGS/IMPRESSION: Lungs are clear. No pleural effusion orpneumothorax. Cardiac silhouette and bones are within normal limits. -------- FINAL REPORT -------- Dictated By: WOJCIECH VAZQUEZ Dictated Date: 07/27/2025 09:19 ET Assigned Physician: WOJCIECH VAZQUEZ Reviewed and Electronically Signed By: WOJCIECH VAZQUEZ Signed Date: 07/27/2025 09:19 ET Workstation ID: [id number] Transcribed By: Self Edit Transcribed Date: 07/27/2025 09:19 ET us Traci Traore MD IMG XR PROCEDURES Final Result * Troponin I high sensitivity (07/26/2025 6:35 PM EDT) Only the most recent of2 resultswithin the time period is included. High Sensitivity Troponin I 6 <=54 ng/L LAB CHEMISTRY METHOD 07/26/2025 7:46 PM EDT [facility] Blood Venous blood specimen / Unknown Venipuncture / Unknown 07/26/2025 6:35 PM EDT 07/26/2025 7:09 PM EDT Narrative [facility] - 07/26/2025 7:46 PM EDT High levels of biotin in samples may falsely decrease hsTroponin values. Use caution when interpreting hsTroponin results in patients taking biotin who exhibit renal impairment (eGFR <60) or in patients taking more than 20 mg/day of biotin. us Traci Traore MD LAB BLOOD ORDERABLES Final Resul t Performing Organization Address City/[facility]/ZIP Co de Phone Number [facility] [address] [place] [address], [place] [phone] * hCG, serum, qualitative (07/26/2025 6:35 PM EDT) Pathologist [facility] hCG Qual Negative Negative 07/26/2025 8:05 PM EDT [facility] Blood Venous blood specimen / Unknown Venipuncture / Unknown 07/26/2025 6:35 PM EDT 07/26/2025 7:10 PM EDT us Traci Traore MD LAB BLOOD ORDERABLES Final Resul t Performing Organization Address [facility] de Phone Number [facility] [address] [place] [address], [place] [phone] * Magnesium (07/26/2025 6:35 PM EDT) [facility] Magnesium 1.9 1.9 - 2.6 mg/dL LAB CHEMISTRY METHOD 07/26/2025 7:46 PM EDT [facility] Blood Venous blood specimen / Unknown Venipuncture / Unknown 07/26/2025 6:35 PM EDT 07/26/2025 7:10 PM EDT us Traci Traore MD LAB BLOOD ORDERABLES Final Resul t Performing Organization Address [facility]/ZIP Co de Phone Number [facility] [address] [place] [address], [place] [phone] * Lipase (07/26/2025 6:35 PM EDT) Pathologist [facility] Lipase 38 13 - 75 unit/L LAB CHEMISTRY METHOD 07/26/2025 7:46 PM [facility] Blood Venous blood specimen / Unknown Venipuncture / Unknown 07/26/2025 6:35 PM EDT 07/26/2025 7:10 PM EDT Traci Traore MD LAB BLOOD ORDERABLES Final Resul t [facility] [address] [place] [address], * (ABNORMAL) Comprehensive metabolic panel (07/26/2025 6:35 PM EDT) [facility] Sodium 137 133 - 145 mmol/L LAB CHEMISTRY METHOD 07/26/2025 7:47 PM [facility] Potassium 3.8 3.5 - 5.5 mmol/L LAB CHEMISTRY METHOD 07/26/2025 7:47 PM [facility] Chloride 105 96 - 110 mmol/L LAB CHEMISTRY METHOD 07/26/2025 7:47 PM [facility] CO2 29 21 - 32 mmol/L LAB CHEMISTRY METHOD 07/26/2025 7:47 PM [facility] Anion Gap 3 3 - 11 LAB CHEMISTRY METHOD 07/26/2025 7:47 PM [facility] Glucose 102(H) 70 - 100 mg/dL LAB CHEMISTRY METHOD 07/26/2025 7:47 PM [facility] BUN 11 5 - 25 mg/dL LAB CHEMISTRY METHOD 07/26/2025 7:47 PM [facility] Creatinine 0.72 0.50 - 1.10 mg/dL LAB CHEMISTRY METHOD 07/26/2025 7:47 PM [facility] eGFR 106 >=60 mL/min/1. 73m2 LAB CHEMISTRY METHOD 07/26/2025 7:47 PM T [facility] Comment:Calculation based on the Chronic Kidney Disease Epidemiology Collaboration (CKD-EPI) equation refit without adjustment for race. BUN/Creatinine Ratio 15.3 LAB CHEMISTRY METHOD 07/26/2025 7:47 PM [facility] Calcium 8.9 8.5 - 10.5 mg/dL LAB CHEMISTRY METHOD 07/26/2025 7:47 PM [facility] AST (SGOT) 17 10 - 42 unit/L LAB CHEMISTRY METHOD 07/26/2025 7:47 PM [facility] ALT (SGPT) 18 10 - 60 unit/L LAB CHEMISTRY METHOD 07/26/2025 7:47 PM [facility] Alkaline Phosphatase 50 42 - 121 unit/L LAB CHEMISTRY METHOD 07/26/2025 7:47 PM [facility] Total Protein 6.8 6.0 - 8.0 g/dL LAB CHEMISTRY METHOD 07/26/2025 7:47 PM [facility] Albumin 3.6 3.2 - 5.0 g/dL LAB CHEMISTRY METHOD 07/26/2025 7:47 PM [facility] Total Bilirubin 0.2 0.0 - 1.4 mg/dL LAB CHEMISTRY METHOD 07/26/2025 7:47 PM [facility] Blood Venous blood specimen / Unknown Venipuncture / Unknown 07/26/2025 6:35 PM EDT 07/26/2025 7:10 PM EDT us Traci Traore MD LAB BLOOD ORDERABLES Final Resul t [facility] [address] [place] [address], * ECG 12 lead (07/26/2025 5:53 PM EDT) Pathologist [facility] Ventricular Rate ECG 76 BPM GEMUSE Atrial Rate 76 BPM GEMUSE P-R Interval 134 ms GEMUSE QRS Duration 84 ms GEMUSE Q-T Interval 398 ms GEMUSE QTc 447 ms GEMUSE P Wave [place] 11 degrees GEMUSE R [place] -7 degrees GEMUSE T [place] 9 degrees GEMUSE ECG Interpretation Normal sinus [...] MD ECG ORDERABLES Final Result GEMUSE * (ABNORMAL) Urinalysis with reflex microscopic (07/26/2025 5:49 PM EDT) [facility] Specific [place] Urine 1.025 1.003 - 1.030 LAB URINALYSIS - AUTOMATED METHOD 07/26/2025 6:11 PM [facility] pH, Urine 6.0 5.0 - 8.0 pH LAB URINALYSIS - AUTOMATED METHOD 07/26/2025 6:11 PM [facility] Leukocytes, Urine Trace(A) Negative LAB URINALYSIS - AUTOMATED METHOD 07/26/2025 6:11 PM [facility] Nitrite, Urine Negative Negative LAB URINALYSIS - AUTOMATED METHOD 07/26/2025 6:11 PM [facility] Protein, Urine 30(A) <=Trace mg/dL LAB URINALYSIS - AUTOMATED METHOD 07/26/2025 6:11 PM [facility] Glucose, Urine Negative Negative mg/dL LAB URINALYSIS - AUTOMATED METHOD 07/26/2025 6:11 PM [facility] Ketones, Urine Negative Negative mg/dL LAB URINALYSIS - AUTOMATED METHOD 07/26/2025 6:[facility] Urobilinogen , Urine 1.0 0.2 - 1.0 mg/dL LAB URINALYSIS - AUTOMATED METHOD 07/26/2025 6:11 PM [facility] Bilirubin, Urine Negative Negative LAB URINALYSIS - AUTOMATED METHOD 07/26/2025 6:[facility] Blood, Urine Moderate(A) Negative LAB URINALYSIS - AUTOMATED METHOD 07/26/2025 6:11 PM [facility] RBC, Urine 2.9 0 - 4 /HPF LAB URINALYSIS - AUTOMATED METHOD 07/26/2025 6:11 PM [facility] WBC, Urine 3.8 0 - 4 /HPF LAB URINALYSIS - AUTOMATED METHOD 07/26/2025 6:11 PM [facility] Squamous Epithelial, Urine >100(H) 0 - 60 /LPF LAB URINALYSIS - AUTOMATED METHOD 07/26/2025 6:11 PM [facility] Bacteria, Urine Negative Negative /HPF LAB URINALYSIS - AUTOMATED METHOD 07/26/2025 6:11 PM [facility] Hyaline Casts, Urine 3.2(H) 0 - 3 /LPF LAB URINALYSIS - AUTOMATED METHOD 07/26/2025 6:11 PM [facility] Urine Urine specimen obtained by clean catch procedure / Unknown Non-blood Collection / Unknown 07/26/2025 5:49 PM EDT 07/26/2025 6:03 PM EDT us Traci Traore MD LAB URINE ORDERABLES Final Resul t [facility] [address] [place] [address], * Bah urine culture tube (07/26/2025 5:49 PM EDT) Pathologist [facility] Extra Tube Hold for add-ons. 07/26/2025 8:01 PM EDT [facility] Comment:Auto resulted. Urine Urine specimen obtained by clean catch procedure / Unknown 07/26/2025 5:49 PM EDT 07/26/2025 6:03 PM EDT us Traci Traore MD LAB URINE ORDERABLES Final Resul t [facility] [address] [place] [address], * CBC auto differential (07/26/2025 5:48 PM EDT) [facility] WBC 7.8 4.8 - 10.8 K/mcL LAB HEMETOLOGY METHOD 07/26/2025 6:10 PM EDT [facility] RBC 4.60 3.80 - 4.80 M/mcL LAB HEMETOLOGY METHOD 07/26/2025 6:10 PM EDT [facility] Hemoglobin 13.5 11.5 - 16.0 g/dL LAB HEMETOLOGY METHOD 07/26/2025 6:10 PM EDT [facility] Hematocrit 40.0 35.0 - 47.0 % LAB HEMETOLOGY METHOD 07/26/2025 6:10 PM EDT [facility] MCV 86.2 79.0 - 98.0 FL LAB HEMETOLOGY METHOD 07/26/2025 6:10 PM EDT [facility] MCH 29.1 27.0 - 32.0 pcg LAB HEMETOLOGY METHOD 07/26/2025 6:10 PM EDT [facility] MCHC 33.8 32.0 - 37.0 g/dL LAB HEMETOLOGY METHOD 07/26/2025 6:10 PM EDT [facility] RDW 12.8 11.0 - 15.0 % LAB HEMETOLOGY METHOD 07/26/2025 6:10 PM EDT [facility] Platelets 337 130 - 400 K/mcL LAB HEMETOLOGY METHOD 07/26/2025 6:[facility] MPV 10.2 7.0 - 11.0 FL LAB HEMETOLOGY METHOD 07/26/2025 6:10 PM [facility] NRBC 0.0 <1.0 % LAB HEMETOLOGY METHOD 07/26/2025 6:10 PM [facility] NRBC Absolute 0.00 <0.10 K/mcL LAB HEMETOLOGY METHOD 07/26/2025 6:10 PM [facility] Neutrophils Relative 58.3 % LAB HEMETOLOGY METHOD 07/26/2025 6:10 PM [facility] Lymphocytes Relative 30.0 % LAB HEMETOLOGY METHOD 07/26/2025 6:10 PM [facility] Monocytes Relative 7.7 % LAB HEMETOLOGY METHOD 07/26/2025 6:10 PM [facility] Eosinophils Relative 3.1 % LAB HEMETOLOGY METHOD 07/26/2025 6:10 PM [facility] Basophils Relative 0.6 % LAB HEMETOLOGY METHOD 07/26/2025 6:10 PM [facility] Immature Granulocytes Relative 0.3 % LAB HEMETOLOGY METHOD 07/26/2025 6:10 PM [facility] Neutrophils Absolute 4.55 1.50 - 7.00 K/mcL LAB HEMETOLOGY METHOD 07/26/2025 6:10 PM [facility] Lymphocytes Absolute 2.34 1.00 - 5.00 K/mcL LAB HEMETOLOGY METHOD 07/26/2025 6:10 PM [facility] Monocytes Absolute 0.60 0.20 - 1.00 K/mcL LAB HEMETOLOGY METHOD 07/26/2025 6:10 PM EDT [facility] Eosinophils Absolute 0.24 0.00 - 0.50 K/[facility] LAB HEMETOLOGY METHOD 07/26/2025 6:10 PM EDT [facility] Basophils Absolute 0.05 0.00 - 0.20 K/[facility] LAB HEMETOLOGY METHOD 07/26/2025 6:10 PM EDT [facility] Immature Granulocytes Absolute 0.02 0.00 - 0.03 K/[facility] LAB HEMETOLOGY METHOD 07/26/2025 6:10 PM EDT [facility] Blood Venous blood specimen / Unknown Venipuncture / Unknown 07/26/2025 5:48 PM EDT 07/26/2025 6:04 PM EDT us Traci Traore MD LAB BLOOD ORDERABLES Final Resul t Performing Organization Address City/[facility]/ZIP Co de Phone Number [facility] [address] [place] [address], [place] [phone] * B-type natriuretic peptide (07/26/2025 5:48 PM EDT) BNP 7 <=100 pcg/mL LAB CHEMISTRY METHOD 07/26/2025 6:50 PM EDT [facility] Blood Venous blood specimen / Unknown Venipuncture / Unknown 07/26/2025 5:48 PM EDT 07/26/2025 6:04 PM EDT us Traci Traore MD LAB BLOOD ORDERABLES Final Resul t [facility] [facility] [address] [place] [address], [place] [phone] * XR Foot 3+ Views Right (06/21/2025 10:27 AM EDT) Only the most recent of2 resultswithin the time period is included. 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 Result [facility] Gallito Hood DPM IMG XR PROCEDURES Final R esult * Cervical Cancer Screening: HPV (10/31/2021) [facility] Cervical Cancer Screening: HPV negative, abstracted Result [facility] HEALTH MAINTENANCE Final Result * HIV Screening (10/31/2021) [facility] HIV Screening abstracted Result [facility] HEALTH MAINTENANCE Final Result * Hepatitis C Screening (10/31/2021) [facility] Hepatitis C Screening abstracted Result [facility] Provider HEALTH MAINTENANCE Final Result * (ABNORMAL) Hemoglobin A1c (09/30/2021) [facility] Hemoglobin A1C 6.9(A) <=6.5 % Blood Venous blood specimen / Unknown Result [facility] Provider LAB BLOOD ORDERABLES Trish l Result * (ABNORMAL) Lipid panel (09/30/2021) [facility] LDL/HDL Ratio 4 0 - 4 Triglycerides 120 0 - 150 mg/dL Cholesterol 222(A) 0 - 200 mg/dL HDL 52 >=40 mg/dL LDL Cholesterol 146(A) 0 - 100 mg/dL Blood Venous blood specimen / Unknown Result [facility] Provider LAB BLOOD ORDERABLES Trish l Result * DIAGNOSTIC MAMMOGRAPHY WITH CAD UNILATERAL (06/11/2021 2:01 PM EDT) Anatomical Region Laterality Modality Mammography 06/07/2021 10:3 9 AM EDT Narrative 06/11/2021 2:49 PM EDT This is a summary report. The complete report is available in the patient's medical record. If you cannot access the medical record, please contact the sending organization for a detailed fax or copy. Exam: Unilateral right digital diagnostic mammogram and right breast ultrasound. History: Call back Findings: Patient is recalled from a screening mammogram performed 06/05/2021 for additional imaging on the right. 90 ML and spot compression MLO and CC views were performed with tomosynthesis. The focal asymmetries do not persist on the additional views. No mass or architectural distortion is apparent. Ultrasound performed in the retroareolar region and the lower inner breast showing no solid or cystic lesion in the areas of the previous focal asymmetries. Impression: No suspicious findings on callback imaging. Routine screening mammography recommended. BI-RADS 1-negative Procedure Note Meg Alan MD - 11/04/2022 This is a summary report. The complete report is available in thepatient's medical record. If you cannot access the medical record, pleasecontact the sending organization for a detailed fax or copy. Exam: Unilateral right digital diagnostic mammogram and right breastultrasound. History: Call back Findings: Patient is recalled from a screening mammogram performed06/05/2021 for additional imaging on the right. 90 ML and spot compression MLO and CC views were performed withtomosynthesis. The focal asymmetries do not persist on the additionalviews. No mass or architectural distortion is apparent. Ultrasoundperformed in the retroareolar region and the lower inner breast showing nosolid or cystic lesion in the areas of the previous focal asymmetries. Impression: No suspicious findings on callback imaging. Routine screeningmammography recommended. BI-RADS 1-negative Traci GARCIA IMG BI PROCEDURES Final Resul t * Urine Albumin Creatinine Ratio (05/29/2021) Urine Albumin Creatinine Ratio abstracted Historical Provider HEALTH MAINTENANCE Final Result from Last 3 Months or Most Recently Relevant to Health Maintenance Insurance [facility] MEDICAID ADVANTAGE Care Teams Central Sterilization Technician Relationship Specialty Start Date End Date Physician, No Pcp PCP - General 04/28/25
--- OUTSIDE RECORDS SUMMARY | 2025-07-31 20:41 | XMS_ITS | Encounter Summary ---
Author Organization [facility] Address [address] [place] [address] Care Team Providers Care Gamemaster Name Role Phone Chalino Valenzuela MD Primary Care Provider [phone] Community, Pcp Primary Care Provider Unavailabl e Encounter Details Date Type Department Care Team Description 06/07/2021 [facility] Medical Records [address] [place] [address] Abstract, Provider Social History Tobacco Use Types Packs/Day Years Used Date Smoking Tobacco: Never Smokeless Tobacco: Never Alcohol Use Standard Drinks/Week Comments Yes 0 (1 standard drink = 0.6 oz pur e alcohol) OCC. Sex Assigned at Date Recorded Not on file Job Start Date Occupation Industry Not on file Not on file Not on file COVID-19 Exposure Response Date Recorded In the last month, have you been in contact with someone who was confirmed or suspected to have Coronavirus / COVID-19? No / Unsure 06/05/2021 1:22 PM EDT documented as of this encounter Plan of Treatment Not on file documented as of this encounter Visit Diagnoses Not on filedocumented in this encounter Care Teams Gamemaster Relationship Specialty Start Date End Date Chalino Valenzuela MD [address] [place] [address] PCP - General Internal Medicine 03/09/13 11/19/22 [facility], Pcp [address] [place] [address] PCP - General Internal Medicine 11/20/22 documented as of this encounter
--- OUTSIDE RECORDS SUMMARY | 2025-07-31 20:41 | XMS_ITS | Encounter Summary ---
Author Organization [facility] Address [address] [place] [address] Care Team Providers Care Weasand Trimmer Name Role Phone Community, Pcp Primary Care Provider Unavailabl e Reason for Visit * Reason Onset Date Comments REFERRAL 08/04/2024 Encounter Details Date Type Department Care Team Description 08/04/2024 Telephone Bariatric Surgery - [place] [address] [address] Jovita Braswell, ,RDN,LDN [address] [address] REFERRAL Social History Tobacco Use Types Packs/Day Years Used Date Smoking Tobacco: Never Smokeless Tobacco: Never Alcohol Use Standard Drinks/Week Comments Yes 0 (1 standard drink = 0.6 oz pur e alcohol) OCC. Sex Assigned at Date Recorded Not on file Job Start Date Occupation Industry Not on file Not on file Not on file documented as of this encounter Miscellaneous Notes * Telephone Encounter - Elaine Jha - 08/04/2024 10:31 AM EDT Referral placed and routed to Anali Noe for assistance with scheduling * Telephone Encounter - Jovita Braswell MS,FLORECITAN,JUAN CARLOSN - 08/04/2024 8:41 AM EDT Please refer [facility] to [facility] documented in this encounter Plan of Treatment Not on file documented as of this encounter Visit Diagnoses Not on filedocumented in this encounter Care Teams Weasand Trimmer Relationship Specialty Start Date End Date [facility], Pcp PCP - General Internal Medicine 11/20/22 documented as of this encounter
--- OUTSIDE RECORDS SUMMARY | 2025-07-31 20:41 | XMS_ITS | Encounter Summary ---
Author Organization [facility] Address [address] [place] [address] Care Team Providers Care Golf Course Mechanic Name Role Phone Chalino Valenzuela MD Primary Care Provider [phone] [facility], Pcp Primary Care Provider Unavailabl e Encounter Details Date Type Department Care Team Description 06/24/2017 Installer Apprentice Report Medical Records [address] [place] [address] Aristeo Phillips MD Social History Tobacco Use Types Packs/Day Years [...] on filedocumented in this encounter Care Teams Golf Course Mechanic Relationship Specialty Start Date End Date Chalino Valenzuela MD [address] [place] [address] PCP - General Internal Medicine 03/09/13 11/19/22 [facility], Pcp [address] [place] [address] PCP - General Internal Medicine 11/20/22 documented as of this encounter
--- OUTSIDE RECORDS SUMMARY | 2025-07-31 20:41 | XMS_ITS | Encounter Summary ---
Author Organization [facility] Address [address] [place] [address] Care Team Providers Care Trimming Cutter Name Role Phone Chalino Valenzuela MD Primary Care Provider [phone] [facility], Pcp Primary Care Provider Unavailabl e Reason for Referral * Radiology Services - Authorized/Booked Specialty Diagnoses / Procedures Referred By Sandra t Referred To Contact Radiology Diagnoses Adenopathy Procedures CAT SCAN OF ABDOMEN NO CONTRAST Chalino Valenzuela MD [address] [place] [address] [address] [address] Referral ID Status Reason Start Date Expiration Date V isits Requested Visits Authorized [id number] Authorized/B ooked 04/07/2014 06/06/2014 1 1 Reason for Visit * Reason Onset Date Comments TEST RESULTS 02/09/2014 Encounter Details Date Type Department Care Team Description 02/09/2014 Telephone Adult Medicine [address] [id number] Chalino Valenzuela MD [address] [place] [address] TEST RESULTS; Social History Tobacco Use Types Packs/Day Years Used Date Smoking Tobacco: Never Alcohol Use Standard Drinks/Week Comments No 0 (1 standard drink = 0.6 oz pur e alcohol) Sex Assigned at Date Recorded Not on file Job Start Date Occupation Industry Not on file Not on file Not on file documented as of this encounter Miscellaneous Notes * Telephone Encounter - Chalino Valenzuela MD - 02/09/2014 5:44 PM EDT Called pt no answer no voicemail please call patient and tell her ct shows post surgical changes some lymph nodes which appear reactive Will repeat the cat scan in 3 months * Telephone Encounter - Sherri Kang - 02/09/2014 11:55 AM EDT Inform patient: ANY URGENT OR ABNORMAL RESULTS WIILL RESULT IN A CALL BACK TO THE PATIENT ROCHELLE. Type of test: :CT Scan Date test was performed: 02-03-14 Where was the test performed: [facility] Who ordered this test?: Chalino Valenzuela Is the doctor here today?: YES Can the message wait until the doctor returns?: NO IF PATIENT'S PCP IS NOT IN INSTRUCT PATIENT THAT THEY WILL RECEIVE A CALL BACK WHEN THE PCP IS IN THE OFFICE NEXT. documented in this encounter Plan of Treatment Not on file documented as of this encounter Visit Diagnoses Diagnosis Adenopathy- Primary Enlargement of lymph nodes documented in this encounter Care Teams Trimming Cutter Relationship Specialty Start Date End Date Chalino Valenzuela MD [address] [place] [address] PCP - General Internal Medicine 03/09/13 11/19/22 [facility] Pcp [address] [place] [address] PCP - General Internal Medicine 11/20/22 documented as of this encounter
--- OUTSIDE RECORDS SUMMARY | 2025-07-31 20:41 | XMS_ITS | Encounter Summary ---
Author Organization [facility] Address [address] [place] [address] Care Team Providers Care Aqueduct And Reservoir Keeper Name Role Phone Chalino Valenzuela MD Primary Care Provider [phone] [facility], Pcp Primary Care Provider Unavailabl e Encounter Details Date Type Department Care Team Description 05/02/2021 Orders Only Medical Records [address] [place] [address] Ken Gates MD [address] [place] [address] Social History Tobacco Use Types Packs/Day Years [...] on file documented as of this encounter Procedures Procedure Name Priority Date/Time Associated Diagnosis Comments OUTSIDE PATHOLOGY Routine 04/30/2021 documented in this encounter Results * OUTSIDE PATHOLOGY (04/30/2021) Ken Gates MD OUTSIDE LAB documented in this encounter Visit Diagnoses Not on filedocumented in this encounter Care Teams Aqueduct And Reservoir Keeper Relationship Specialty Start Date End Date Chalino Valenzuela MD [address] [place] [address] PCP - General Internal Medicine 03/09/13 11/19/22 [facility], Pcp [address] [place] [address] PCP - General Internal Medicine 11/20/22 documented as of this encounter
--- OUTSIDE RECORDS SUMMARY | 2025-07-31 20:41 | XMS_ITS | Encounter Summary ---
Author Organization [facility] Address [address] [place] [address] Care Team Providers Care Social Services Designee Name Role Phone Chalino Valenzuela MD Primary Care Provider [phone] [facility], Pcp Primary Care Provider Unavailabl e Encounter Details Date Type Department Care Team Description 04/06/2013 Release of Information Medical Records [address] [place] [address] Abstract, Provider Social History Tobacco Use Types [...] on filedocumented in this encounter Care Teams Social Services Designee Relationship Specialty Start Date End Date Chalino Valenzuela MD [address] [place], [place] [phone] PCP - General Internal Medicine 03/09/13 11/19/22 [facility], Pcp [address] [place] [address] PCP - General Internal Medicine 11/20/22 documented as of this encounter
--- OUTSIDE RECORDS SUMMARY | 2025-07-31 20:41 | XMS_ITS | Encounter Summary ---
Author Organization [facility] Address [address] [place] [address] Care Team Providers Care Tool Distributor Name Role Phone Chalino Valenzuela MD Primary Care Provider [phone] [facility], Pcp Primary Care Provider Unavailabl e Encounter Details Date Type Department Care Team Description 07/01/2013 Release of Information Medical Records [address] [place], [place] [phone] Abstract, Provider Social History Tobacco Use Types [...] on filedocumented in this encounter Care Teams Tool Distributor Relationship Specialty Start Date End Date Chalino Valenzuela MD [address] [place], [place] [phone] PCP - General Internal Medicine 03/09/13 11/19/22 [facility], Pcp [address] [place] [address] PCP - General Internal Medicine 11/20/22 documented as of this encounter
--- OUTSIDE RECORDS SUMMARY | 2025-07-31 20:41 | XMS_ITS ---
Author Name [facility] Organization Unknown Care Team Organization Name Specialty Phone Email Start Date End Da lui [facility] DELTA CRENSHAW Primary Care 09/23/2022 4
--- OUTSIDE RECORDS SUMMARY | 2025-07-31 20:41 | XMS_ITS | Clinical Summary ---
Author Organization [facility] Address [address] [place] [address] Care Team Providers Care Skein Yarn Dyer Name Role Phone Unavailable Primary Care Provider Unavailabl e Source Comments PLEASE NOTE, if this patient is a minor, it may be UNLAWFUL to discuss sensitive information that is contained in these records (such as FAMILY PLANNING, MENTAL HEALTH or SUBSTANCE ABUSE) with the minor patient's parent or other person without the patient's specific authorization.[facility] Immunizations Immunization Administration Dates Next Due Moderna COVID-19 Vaccine, re d cap blue label, 12+ Primary Series 03/04/2021,02/05/2021 Social History Tobacco Use Types Packs/Day Years Used Date Smoking Tobacco: Never Assessed Social Connections Answer Date Recorded Social Connections and Isolation 0 02/05/2021 Financial Resource Strain Answer Date R ecorded Financial Resource Strain 0 2020 Stress Answer Date Recorded Stress 0 02/05/2021 Physical Activity Answer Date Recorded Physical Activity 0 02/05/2021 Food Insecurity Answer Date Recorded Food 0 02/05/2021 Transportation Needs Answer Date Record ed Transportation 0 02/05/2021 Housing Stability Answer Date Recorded Housing 0 02/05/2021 Safety and Environment Answer Date Oscar rded Safety 0 02/05/2021 Utilities Answer Date Recorded Utilities 0 02/05/2021 Employment Answer Date Recorded Employment 0 02/05/2021 Comments Unknown Sex and Gender Information Value Date Recorded Sex Assigned at Not on file Legal Sex Female 9:02 AM PDT Gender Identity Not on file Sexual Orientation Not on file Plan of Treatment Health Maintenance Due Date Last Done Comments Anxiety Screening 1981 HPV Screening 1981 Hepatitis C Screening 1981 Lipid Screening 1981 Pap + HPV 1981 Tobacco Screening 1981 Relationship Safety Screening/Counseling 1996 Hypertension Screening (#1) 1999 Imm-DTaP/Tdap/Td (1 - Tdap) 2000 Imm-Hepatitis B (1 of 3 - 19 + 3-dose series) 2000 Cervical Cancer Screening 2002 Pap Smear 2002 Breast Cancer Screening (Mammogram) 2021 Diabetes Screening 11/26/2023 11/26/2020 Alcohol and Drug Screen 11/16/2024 Depression Annual Screen 11/16/2024 [id number] ( season) 2025 021, 02/05/2021 Imm-Influenza (#1) 2025 HIV Screening Completed 11/26/2020 Cervical Ablation/Cold-Knife Conization Discontinued Cervical Cryotherapy Discontinued Colposcopy Discontinued Endometrial Biopsy Discontinued Excision/Leep Discontinued HPV Genotyping Discontinued Vaginal Pap Discontinued Vulvoscopy Discontinued Insurance [employer] Member Subscriber Plan / Payer (Ef fective 2018-Present) Name:Cathi Hart Relation to Subscriber:Self Name:Cathi Hatr Payer ID:[id number] Group ID:Not on file Type:Medicaid Address: [facility] [address] [place] [address]
--- OUTSIDE RECORDS SUMMARY | 2025-07-31 20:41 | XMS_ITS | Clinical Summary ---
Author Organization [facility] Address [address] [place] [address] Care Team Providers Care Lock Expert Name Role Phone Community, Pcp Primary Care Provider Unavailabl e Allergies Active Allergy Reactions Severity Noted Date Comments Tape Hives/Urticaria,Rash /Derm atitis 06/30/2013 & burning of skin - also allergic to betadine Codeine 04/04/2013 Percocet, tramadol- makes her aggressive and itchy and nervous Latex Hives/Urticaria,Rash /Derm atitis 06/30/2013 Medications Medication Sig Dispensed Refills Start Date End Date Status ALBUTEROL SULFATE (PROAIR HFA) 108 (90 BASE) MCG/ACT Aero Soln Inhale 2 Puffs into the lungs 4 times daily as needed for Cough, Wheezing or Shortness of Breath. 1 Inhaler 1 12/31/2018 Active albuterol (PROVENTIL) (2.5 MG/3ML) 0.083% nebulizer solution Take 1 Vial by nebulization every 4 hours as needed for Wheezing for up to 180 days. 50 Vial 0 12/31/2018 Active Glucose Blood (FREESTYLE LITE) Strip To test sugars once a day prior to breakfast 200 Strip 2 05/28/2021 Active FreeStyle Lancets Misc To test sugars once a day prior to breakfast 100 Each 1 05/28/2021 Active meloxicam (MOBIC) 7.5 MG tablet TAKE 1 TABLET BY MOUTH EVERY DAY 30 tablet 5 06/21/2021 Active losartan (COZAAR) 50 MG tablet Take 1 tablet by mouth daily. 90 tablet 1 09/30/2021 Active metformin (GLUCOPHAGE-XR) 500 MG 24 hr tablet TAKE 1 TABLET BY MOUTH EVERY DAY WITH BREAKFAST 90 Tablet 1 03/03/2022 Active Diclofenac Sodium 1 % Gel Apply 4 g topically 2 times daily. 100 g 2 11/25/2023 Active polyethylene glycol (GLYCOLAX) 17 GM/SCOOP powder Take 17 g by mouth daily for 90 days. 1530 g 0 07/06/2024 Active Active Problems Problem Noted Date Type 2 diabetes, uncontrolled, with tristan l manifestation 05/29/2021 Microalbuminuria 05/29/2021 Essential hypertension 08/24/2019 Low grade squamous intraepith lesion on cytologic smear cervix (lgsil) 04/27/2017 Overview: 03/13/17 LSIL 04/24/17 IVETTE 1 10/19/20 ASC-H HR-HPV + neg 18/45 01/29/2021 IVETTE 1 10/31/2021 NSIL HRHPV neg -Pt Counsyl Inherited Cancer Breast Panel testing negative 03/16/2017. Tyrer-Cuzick score =16.5%, moderate risk 01/26/2017 Overview: Tyrer-Cuzick modeling is indicated today and shows a 16.5% lifetime risk for breast cancer. The general population lifetime breast cancer risk is 13.2%. Based upon a discussion of these findings, I advise: Monthly BSE and breast awareness Clinical breast exam every 6-12 mos Annual pelvic exam Annual mammogram to commence at age 39 due to FH Chronic headaches 12/27/2014 Neck pain 12/27/2014 Migraines 12/27/2014 Class 3 severe obesity with body mass in dex (BMI) of 40.0 to 44.9 in adult 12/27/2014 Resolved Problems Problem Noted Date Resolved Date Headache 12/23/2014 12/27/2014 Immunizations Name Administration Dates Next Due COVID-19 (Moderna) 12/26/2021,03/04/2021, 021 Covid-19 Bivalent (Pfizer) 10/06/2022 Influenza Vaccine-preservati ve Free-quadrivalent 4 Years 09/30/2021 Pneumoccoccal(Adult) Polysaccharide PPSV23 09/30 Tdap 05/28/2021 Family History Medical History Relation Name Comments Cancer of the Lung Aunt 1 paternal aunt-smoker Cancer of the Lung Aunt 2 paternal aunt-smoker cancer,other Aunt 3 paternal aunt-w idespread mets, ? primary Diabetes Brother [place] Father Diabetes Mother HTN [place] Breast Sister Cancer of the Breast Sister total 6 lumps L breast at dx; also HTN Relation Name Status Comments Aunt 1 Aunt [...] file Not on file Not on file Last Filed Vital Signs Vital Sign Reading Time Taken Comments Blood Pressure 142/80 07/06/2024 9:06 AM EDT Pulse 88 07/06/2024 9:06 AM EDT Temperature 36.7 C (98.1 F) 05/23/2024 8:37 AM EDT Respiratory Rate 16 07/04/2022 2:24 PM EDT Oxygen Saturation 97% 07/06/2024 9:06 AM EDT Inhaled Oxygen Concentration - - Weight 105.7 kg (233 lb) 08/04/2024 8:25 AM EDT Height 160 cm (5' 3 ) 07/06/2024 9:06 AM EDT Body Mass Index 41.27 07/06/2024 9:06 AM EDT Plan of Treatment Health Maintenance Due Date Last Done Comments DIABETES: ANNUAL EYE EXAM 1999 BASELINE HEALTH EXAM 40-64 2021 DIABETES: ANNUAL FOOT EXAM 05/28/2022 05/28/2021 DIABETES: ANNUAL URINE PROTE IN TEST (MICROALBUMIN) 05/29/2022 05/29/2021 MAMMOGRAM 06/11/2022 06/11/2021, 06/05/2021 CERVICAL CANCER SCREENING 10/31/20242020, 10/19/2020, 03/13/2017 BMI CHECK/ADVISE 11/16/2024 05/23/2024, , 10/31/2021, Additional history exists DEPRESSION SCREENING/FOLLOWUP 11/16/2024 SOCIAL NEEDS SCREENING 11/16/2024 DIABETES: BLOOD SUGAR CONTRO L TEST (HGBA1C) 11/29/2024 08/29/2024, 09/30/2021, 05/29/2021, Additional history exists Covid-19 Vaccine ( - 2022-2 4 season) 2025 10/06/2022, 12/26/2021, 03/04/2021, Additional history exists INFLUENZA (#1) 2025 09/30/2021 DIABETES/HEART DISEASE: VIRGINIA LARA CHOLESTEROL (LDL) 08/29/2025 08/29/2024, 09/30/2021, 05/29/2021, Additional history exists DTAP/TDAP/TD (2 - Td or Tdap) 05/28/2031 05/28/2021 PNEUMOCOCCAL VACCINE FOR HIG H RISK PATIENTS (#2) 2046 09/30/2021 Care Teams Lock Expert Relationship Specialty Start Date End Date Community, Pcp PCP - General Internal Medicine 11/20/22
--- OUTSIDE RECORDS SUMMARY | 2025-07-31 20:41 | XMS_ITS | Encounter Summary ---
Author Organization [facility] Address [address] [place] [address] Care Team Providers Care Electric Locomotive Crane Operator Name Role Phone Physician, No Pcp Primary Care Provider Unavaila ble Encounter Details Date Type Department Care Team ([facility] st Contact Info) Description 07/26/2025 Telephone Orthopedic Surgery - [place] [address] [phone] Gallito Hood, DPM [address] [phone] Social History Tobacco Use Types Packs/Day Years [...] PM EST documented as of this encounter Progress Notes * Megan Martinez - 07/26/2025 2:16 PM EDT Pt dropped off an Emergency Aid form that needs to be filled out. documented in this encounter Plan of Treatment Upcoming Encounters Date Type Department Care Team (Late st Contact Info) Description 08/14/2025 9:45 AM EDT Office Visit Orthopedic Surgery - [place] 250 175 [facility] [address] [place] [address] Gallito Hood, DPM 175 [facility] [address] [place] [phone] 08/18/2025 10:15 AM EDT Evaluation [facility] [place] [address] [facility] [address] [place] [address] Bessie Shoemaker, PT 11/20/2025 1:00 PM EST Nutrition Bariatric Surgery - [place] 175 [facility] [address] [place] [address] Minerva Shay, RD 175 [facility] [address] [place] [address] documented as of this encounter Visit Diagnoses Not on filedocumented in this encounter Care Teams Electric Locomotive Crane Operator Relationship Specialty Start Date End Date Physician, No Pcp PCP - General 04/28/25 documented as of this encounter
--- OUTSIDE RECORDS SUMMARY | 2025-07-31 20:41 | XMS_ITS | Encounter Summary ---
Author Organization [facility] Address [address] [place] [address] Care Team Providers Care Surface Grinder Name Role Phone Chalino Valenzuela MD Primary Care Provider [phone] [facility], Pcp Primary Care Provider Unavailabl e Encounter Details Date Type Department Care Team Description 05/28/2017 Lieutenant Ballistics Report Medical Records [address] [place] [id number] Jason Trivedi MD Social History Tobacco Use Types Packs/Day [...] on filedocumented in this encounter Care Teams Surface Grinder Relationship Specialty Start Date End Date Chalino Valenzuela MD [address] [place] [phone] PCP - General Internal Medicine 03/09/13 11/19/22 [facility], Pcp [address] [place] [phone] PCP - General Internal Medicine 11/20/22 documented as of this encounter
== END 2025-07-31 15:45 | disposition home or self-care (01) ==
PROVIDERS: Visit Provider Physician Assistant
DX: M17.11 Unilateral primary osteoarthritis, right knee (principal)
CPT/HCPCS: 99213; G2211

== ENCOUNTER → 2025-07-31 15:12 | Outpatient (BNV) | payer OTHER, SELFPAY | PROVIDERS: Visit Provider Radiology Diagnostic Radiology | DX: M17.11 Unilateral primary osteoarthritis, right knee (principal) | CPT/HCPCS: 73560 ==

== ENCOUNTER 2025-10-09 10:13 | Outpatient (AMB) | payer MEDICAID, SELFPAY ==
[2025-10-09 10:28] VITALS: BP 172/90; PULSE 85; RESP 16; O2SAT 97; BMI 38.8
--- NOTE | 2025-10-09 10:28 | A.OFFVIS_ITS ---
Vital Signs 10/09/25 10:28 Height 5 ft 3 in Weight 219 lb BMI 38.8 BP 172/90 H Blood Pressure Location Lt brachial Position Sitting Respiration 16 Pulse 85 Pulse Source Pulse Oximeter Pulse Oximetry (%) 97 Oxygen Delivery Method Room Air Intake Visit Reasons: UNILATERAL PRIMARY OSTEOARTHRITIS, RT KNEE Director Of Regional Sales Required: No Accompanied by: Significant Other Allergies latex (LATEX) Allergy (Intermediate, Verified 10/09/25 10:29) BURNING SKIN povidone-iodine (From BETADINE) Allergy (Intermediate, Verified 10/09/25 10:29) PONCE SKIN soap (From BETADINE) Allergy (Intermediate, Verified 10/09/25 10:29) PONCE SKIN tramadol (TRAMADOL) Allergy (Mild, Verified 10/09/25 10:29) RASH benadine Allergy (Unknown, Uncoded 10/09/25 10:29) Unknown codeine Allergy (Unknown, Uncoded 10/09/25 10:29) Unknown Medication List - Last Reconciled 10/09/25 by Abby Alas LPN losartan 50 mg PO DAILY meloxicam 15 mg PO DAILY pantoprazole 20 mg PO DAILY semaglutide (Ozempic) mg subcut HPI HPI UNILATERAL PRIMARY OSTEOARTHRITIS, RT KNEE: Details: History of Present Illness The patient is a 45-year-old female presenting with right knee pain. The knee pain has persisted for six years, with a severity of 8/10, and worsens with movement, significantly impacting the patient's ability to sleep and perform daily activities. Initially, joint injections provided relief for up to two months, but the patient has since refrained from further injections. The patient was referred by orthopedics for consideration of genicular nerve blocks and potential ablation due to the ineffectiveness of previous treatments. An MRI of the right knee revealed moderate patellofemoral osteoarthritis with full thickness articular cartilage fissuring of the patellar median ridge and lateral patellar facet. Pain Description - Onset: 6 years ago - Quality: Constant pain rated at 8/10 - Location: Right knee - Exacerbating factors: Movement - Impact: Interferes with sleep and daily activities Physical Exam - Appears afebrile. - Alert and oriented. - Mood and affect appropriate. - Follows and participates in conversation appropriately. Results - MRI of the right knee: Moderate patellofemoral osteoarthritis with full thickness articular cartilage fissuring of the patellar median ridge and lateral patellar facet Pain Management - Affect: Pain significantly impacts sleep and daily activities - Analgesia: Previous joint injections provided temporary relief - Activities of Daily Living: Pain limits ability to perform daily tasks [facility] Medical History (Updated 10/09/25 @ 10:49 by Danilo Worrell MD) Lottie's deformity of right heel Surgical History (Updated 07/31/25 @ 15:29 by ERNESTO Santos) Hx of foot surgery Social History (Updated 07/31/25 @ 15:29 by ERNESTO Santos) Current occupational status: unemployed Current occupation: right hand dominant Physical Exam Vital Signs: Last Vital Signs Pulse 85 10/09/25 10:28 Resp 16 10/09/25 10:28 BP 172/90 H 10/09/25 10:28 Pulse Ox 97 10/09/25 10:28 Oxygen Delivery Method Room Air 10/09/25 10:28 BMI result Body Mass Index 38.8 Assessment & Plan Assessment & Plan (1) Right knee meniscal tear: Code(s): S83.206A - Unspecified tear of unspecified meniscus, current injury, right knee, initial encounter Category: Medical (2) Patellofemoral disorder of right knee: Code(s): M22.2X1 - Patellofemoral disorders, right knee Category: Medical Plan Plan Patient was informed and verbally consented to the use of an ambient scribe for clinic note documentation during this visit. 1. Right Knee Pain - Plan to initiate aggressive physical therapy to strengthen quadriceps and gluteal muscles to alleviate patellofemoral pain. - Consideration of genicular nerve blocks and potential ablation if physical therapy is ineffective after six months. Discussion Notes I discussed with the patient the importance of initiating aggressive physical therapy to strengthen the muscles supporting the knee joint, particularly the quadriceps and gluteal muscles, to alleviate the patellofemoral pain. We also discussed the potential for genicular nerve blocks and ablation if physical therapy does not provide sufficient relief after six months. Patient Instructions - Begin physical therapy as soon as possible to strengthen knee-supporting muscles. - Perform prescribed exercises daily at home to maintain muscle strength. - Follow up in six months if pain persists despite physical therapy. Orders: Orders PT Evaluation and Treatment 10/09/25 M22.2X1 - Patellofemoral disorders, right knee, S83.206A - Unspecified tear of unspecified meniscus, current injury, right knee, initial encounter Coding Level of Care Code New Pt Level 3 (65105) Diagnoses Right knee meniscal tear S83.206A Patellofemoral disorder of right knee M22.2X1
--- OUTSIDE RECORDS SUMMARY | 2025-10-09 12:27 | XMS_ITS | Clinical Summary ---
Author Organization [facility] Address [address] [place] [address] Care Team Providers Care Assistant Designer Name Role Phone Community, Pcp Primary Care [...] aunt-w idespread mets, ? primary Diabetes Brother [place] Father Diabetes Mother HTN [place] Breast Sister [...] RISK PATIENTS (#2) 2046 09/30/2021 Care Teams Assistant Designer Relationship Specialty Start Date End Date Community, Pcp PCP - General Internal Medicine 11/20/22
--- OUTSIDE RECORDS SUMMARY | 2025-10-09 12:27 | XMS_ITS | Encounter Summary ---
Author Organization [facility] Address [address] [place] [address] Care Team Providers Care Invisible Braces Orthodontist Name Role Phone Chalino Valenzuela MD Primary Care Provider [phone] [facility], Pcp Primary Care Provider Unavailabl e Encounter Details Date Type Department Care Team Description 05/08/2021 Orders Only Medical Records [address] [place] [id number] Ken Gates MD [address] [place] [phone] Social History Tobacco Use Types Packs/Day [...] Date/Time Associated Diagnosis Comments OUTSIDE PATHOLOGY Routine 04/29/2021 documented in this encounter Results * OUTSIDE PATHOLOGY (04/29/2021) Ken Gates MD OUTSIDE LAB documented in this encounter Visit Diagnoses Not on filedocumented in this encounter Care Teams Invisible Braces Orthodontist Relationship Specialty Start Date End Date Chalino Valenzuela MD [address] [place] [phone] PCP - General Internal Medicine 03/09/13 11/19/22 [facility], Pcp [address] [place] [address] PCP - General Internal Medicine 11/20/22 documented as of this encounter
--- OUTSIDE RECORDS SUMMARY | 2025-10-09 12:27 | XMS_ITS | Encounter Summary ---
Author Organization [facility] Address [address] [place] [address] Care Team Providers Care Construction Cost Estimator Name Role Phone Community, Pcp Primary Care Provider Unavailabl e Reason for Visit * Reason Onset Date Comments REFERRAL 08/04/2024 Encounter Details Date Type Department Care Team Description 08/04/2024 Telephone Bariatric Surgery - [place] [address] [address] Jovita Braswell, ,RDN,LDN [address] [address] REFERRAL Social History Tobacco Use Types Packs/Day [...] 8:41 AM EDT Please refer pt to [facility] documented in this encounter Plan of Treatment Not on file documented as of this encounter Visit Diagnoses Not on filedocumented in this encounter Care Teams Construction Cost Estimator Relationship Specialty Start Date End Date [facility], Pcp PCP - General Internal Medicine 11/20/22 documented as of this encounter
--- OUTSIDE RECORDS SUMMARY | 2025-10-09 12:27 | XMS_ITS | Clinical Summary ---
Author Organization 175 [facility] Address [address] [place] [address] Phone Care Team Providers Care Lopper Name Role Phone Physician, No Pcp Primary Care Provider Unavaila ble Allergies Active Allergy Reactions Criticality Noted Date Comments Adhesive Tape-Silicones Rash Low 10/01/2022 Codeine Irritable Medium 04/04/2013 Percocet, tramadol- makes her aggressive and itchy and nervous Latex Hives,Rash Low 06/30/2013 Tramadol Anxiety Low 01/10/2025 Medications diclofenac (VOLTAREN) 1 % topical gel Apply 4 g topically 2 times daily. 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 Achilles tendon tear, right, sequela 01/11/2025 Tendonitis, Achilles, right 01/11/2025 Class 3 severe obesity with body mass index (BMI) of 40.0 to 44.9 in adult ([facility] [place], [facility] V28) 08/19/2024 Microalbuminuria 05/29/2021 Type II or unspecified type diabetes mellitus with renal manifestations, 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.42) ([facility] V24, [facility] V28) 05/29/2021 Essential hypertension 08/24/2019 Low grade squamous intraepit h lesion on cytologic smear cervix (lgsil) 04/27/2017 Overview (08/19/2024): 03/13/17 LSIL 04/24/17 IVETTE 1 10/19/20 ASC-H HR-HPV + neg 16/18/45 01/29/2021 IVETTE 1 10/31/2021 NSIL HRHPV neg Chronic headaches 12/27/2014 Migraines 12/27/2014 Neck pain 12/27/2014 Encounters Date Type Department Care Team Description 07/26/2025 4:55 PM EDT - 07/26/2025 8:59 PM EDT Emergency [facility] Emergency [address] [place] [address] Traci Traore MD Granzo, Daniela, MD Elevated blood pressure reading (Primary Dx); Acute nonintractable headache, unspecified headache type; Menorrhagia with irregular cycle Discharge Disposition: Home or Self Care 07/26/2025 1:45 PM EDT Office Visit Bariatric Surgery [facility] 175 [facility] [address] [place] [address] Zabrina Scales MD Obesity (BMI 30-39.9) (Primary Dx); Essential hypertension; Achilles tendon tear, right, sequela; Type II or unspecified type diabetes mellitus with renal manifestations, 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.42) ([facility] V24, [facility] V28) 07/26/2025 Telephone Orthopedic Surgery [facility] 250 175 [facility] [address] [place] [address] Gallito Hood DPM from Last 3 Months Immunizations Immunization Administration Dates Next Due Influenza Quadravalent, MDCK [...] mellitus type 2, co ntrolled, with complications ([facility] V24, [facility] V28) DX:Diabetes mellitus type 2, controlled, with complications ([facility]) Essential hypertension DX:Essent ial hypertension Family History [...] Safety Answer Date Record ed Physical Abuse Unrecognized value 04/28/2025 Verbal Abuse Unrecognized value 04/28/2025 Comments No Sex and Gender Information [...] Care Team (Late st Contact Info) Description 10/17/2025 1:00 PM EST Office Visit [facility] [place] [address] [address] Gallito Hood DPM [address] [phone] 10/19/2025 8:00 AM EST Evaluation [facility] [place] [address] [address] AlejandraDoron Yvonne, PT 11/20/2025 1:00 PM EST Nutrition Bariatric Surgery [facility] [place] 175 [facility] [address] [place] [address] Minerva Shay, RD 175 [facility] [address] [place] [address] Health Maintenance Due Date Last Done Comments Diabetes: Annual Foot Exam 1991 Diabetes: Annual Retina Eye Exam 1991 Hepatitis B Vaccines (1 of 3 - 19+ 3-dose series) 2000 HPV Vaccines (1 - 3-dose SCDM series) 2008 Pneumococcal Vaccine: Pediatrics (0 to 5 Years) and At-Risk Patients (6 to 49 Years) (2 of 2 - PCV) 09/30/2022 09/30/2021 Social Influencers of Health Screening 10/25/2022 Diabetes: Annual Urine Albumin-Creatinine Ratio (uACR) 10/26/2022 05/29/2021 Breast Cancer Screening 06/11/2023 06/11/2021, 06/05 Depression Screening 11/16/2024 Diabetes: Blood Sugar Control Test (HGBA1C) 02/27/2025 08/29/2024, 09/30/2021 COVID-19 Vaccine ( season) 2025 10/06/2022, 12/26/2021, 03/04/2021, Additional history exists Influenza Vaccine (#1) 2025 09/30/2021 Diabetes: Annual GFR (Glomerular Filtration Rate) 07/26/2026 07/26/2025, 01/10/2025, 08/29/2024, Additional history exists Hypertension/CHF/CAD Annual BMP Blood Test 07/26/2026 07/26/2025, 01/10/2025, 08/29/2024, Additional history exists Cervical Cancer Screening: HPV 10/31/2026 10/31/2021 Cholesterol Screening (Lipid Panel) 08/29/2029 08/29/2024, 09/30/2021 DTaP,Tdap,and Td Vaccines (2 - Td or Tdap) 05/28/2031 05/28/2021 RSV Immunization Adult Patients (1 - 1-dose 75+ series) 2056 HIV Screening Completed 10/31/2021 Hepatitis C Screening [...] this topic Medical Devices Implanted Type Area Optics Technical Officer Device Identifier Shelf Expiration Date Model / Serial / Lot Implant Bioinductive W/Arth Del [facility] - [id number] Implanted:Qty: 1 on 04/28/2025 by Gallito Hood DPM at [facility] [employer] Right: Ankle [employer] - ENDOSCOPY 01/05/2028 [id number] / NA / [id number] Ultrabridge Kit Implanted:Qty: 1 on 04/28/2025 by Gallito Hood DPM at [facility] Right: Ankle [employer] 12/28/2027 [id number] / [id number] / [id number] Procedures Procedure Name Priority Date/Time Associated Diagnosis Comments CT HEAD WO CONTRAST STAT 07/26/2025 7 :33 PM EDT POC , URINE DIAGNOSTIC STAT 07/26/2025 7:17 PM EDT XR CHEST 2 VIEWS STAT 07/26/2025 6:5 2 PM EDT HCG, SERUM, QUALITATIVE STAT Add-on [...] HIGH SENSITIVITY Timed 07/26/2025 5:48 PM EDT HM HPV Routine 10/31/2021 HM HEPATITIS C [...] by: Mateo Hsu MD on 07/26/2025 20:07:15 Traci Traore MD [facility] CT PROCEDURES Final Result * POC , [...] Signed Date: 07/27/2025 09:19 ET Workstation ID: [id number] Transcribed By: Self Edit Transcribed Date: 07/27/2025 [...] Signed Date: 07/27/2025 09:19 ET Workstation ID: [id number] Transcribed By: Self Edit Transcribed Date: 07/27/2025 09:19 ET us Traci Traore MD IMG XR PROCEDURES Final Result * Troponin I high sensitivity (07/26/2025 6:35 PM EDT) Only the most recent of2 resultswithin the time period is included. [facility] High Sensitivity Troponin I 6 <=54 ng/L LAB CHEMISTRY METHOD 07/26/2025 7:46 PM EDT [facility] Blood Venous blood specimen / Unknown Venipuncture / Unknown 07/26/2025 6:35 PM EDT 07/26/2025 7:09 PM EDT Narrative [facility] - 07/26/2025 7:46 PM EDT High levels of biotin in samples may falsely decrease hsTroponin values. Use caution when interpreting hsTroponin results in patients taking biotin who exhibit renal impairment (eGFR <60) or in patients taking more than 20 mg/day of biotin. us Traci Traore MD LAB BLOOD ORDERABLES Final Resul t Performing Organization Address City/[facility]/ZIP Co de Phone Number [facility] [address] [place] [address], [place] [phone] * hCG, serum, qualitative (07/26/2025 6:35 PM EDT) [facility] hCG Qual Negative Negative 07/26/2025 8:05 PM EDT [facility] Blood Venous blood specimen / Unknown Venipuncture / Unknown 07/26/2025 6:35 PM EDT 07/26/2025 7:10 PM EDT us Traci Traore MD LAB BLOOD ORDERABLES Final Resul t [facility] [address] [place] [address], [place] [phone] * Magnesium (07/26/2025 6:35 PM EDT) [facility] Magnesium 1.9 1.9 - 2.6 mg/dL LAB CHEMISTRY METHOD 07/26/2025 7:46 PM EDT [facility] Blood Venous blood specimen / Unknown Venipuncture / Unknown 07/26/2025 6:35 PM EDT 07/26/2025 7:10 PM EDT us Traci Traore MD LAB BLOOD ORDERABLES Final Resul t Performing Organization Address [facility]/ZIP Co de Phone Number [facility] [address] [place] [address], [place] [phone] * Lipase (07/26/2025 6:35 PM EDT) Pathologist [facility] Lipase 38 13 - 75 unit/L LAB CHEMISTRY METHOD 07/26/2025 7:46 PM EDT [facility] Blood Venous blood specimen / Unknown Venipuncture / Unknown 07/26/2025 6:35 PM EDT 07/26/2025 7:10 PM EDT us Traci Traore MD LAB BLOOD ORDERABLES Final Resul t Performing Organization Address [facility]/ZIP Co de Phone Number [facility] [address] [place] [address], [place] [phone] * (ABNORMAL) Comprehensive metabolic panel (07/26/2025 6:35 PM EDT) Pathologist [facility] Sodium 137 133 - 145 mmol/L LAB CHEMISTRY METHOD 07/26/2025 7:47 PM EDT [facility] Potassium 3.8 3.5 - 5.5 mmol/L LAB CHEMISTRY METHOD 07/26/2025 7:47 PM EDT [facility] Chloride 105 96 - 110 mmol/L LAB CHEMISTRY METHOD 07/26/2025 7:47 PM EDT [facility] CO2 29 21 - 32 mmol/L LAB CHEMISTRY METHOD 07/26/2025 7:47 PM EDT [facility] Anion Gap 3 3 - 11 LAB CHEMISTRY METHOD 07/26/2025 7:47 PM EDT [facility] Glucose 102(H) 70 - 100 mg/dL LAB CHEMISTRY METHOD 07/26/2025 7:47 PM [facility] BUN 11 5 - 25 mg/dL LAB CHEMISTRY METHOD 07/26/2025 7:47 PM [facility] Creatinine 0.72 0.50 - 1.10 mg/dL LAB CHEMISTRY METHOD 07/26/2025 7:47 PM [facility] eGFR 106 >=60 mL/min/1. 73m2 LAB CHEMISTRY METHOD 07/26/2025 7:47 PM [facility] Comment:Calculation based on the Chronic [...] MD LAB BLOOD ORDERABLES Final Resul t [facility] [address] [place] [address], [place] [phone] * ECG 12 lead (07/26/2025 5:53 PM EDT) [facility] Ventricular Rate ECG 76 BPM GEMUSE Atrial Rate 76 BPM GEMUSE P-R Interval 134 ms GEMUSE QRS Duration 84 ms GEMUSE Q-T Interval 398 ms GEMUSE QTc 447 ms GEMUSE P Wave Burton 11 degrees GEMUSE R Burton -7 degrees GEMUSE T Burton 9 degrees GEMUSE ECG Interpretation Normal sinus rhythm Moderate voltage criteria for LVH, may be normal variant ( R in aVL , [place] product ) When compared with ECG of 07-JAN-2020 11:36, No significant change was found Confirmed by CESAR PINO ([id number]) on 07/26/2025 8:12:39 PM GEMUSE 07/26/2025 5:53 PM EDT 07/26/2025 8:12 PM EDT us Traci Traore MD ECG ORDERABLES Final Result Performing Organization Address [facility] de Phone Number GEMUSE * (ABNORMAL) Urinalysis with reflex microscopic (07/26/2025 5:49 PM EDT) [facility] Specific [place] Urine 1.025 1.003 - 1.030 LAB URINALYSIS - AUTOMATED METHOD 07/26/2025 6:11 PM EDT [facility] pH, Urine 6.0 5.0 - 8.0 pH LAB URINALYSIS - AUTOMATED METHOD 07/26/2025 6:11 PM EDT [facility] Leukocytes, Urine Trace(A) Negative LAB URINALYSIS - AUTOMATED METHOD 07/26/2025 6:11 PM EDT [facility] Nitrite, Urine Negative Negative [...] 07/26/2025 6:11 PM [facility] Urobilinogen , Urine 1.0 0.2 - 1.0 mg/dL LAB URINALYSIS - AUTOMATED METHOD 07/26/2025 6:11 PM [facility] Bilirubin, Urine Negative Negative LAB URINALYSIS - AUTOMATED METHOD 07/26/2025 6:11 PM [facility] Blood, Urine Moderate(A) Negative LAB [...] ORDERABLES Final Resul t Performing Organization Address City/[facility]/ZIP Co de Phone Number [facility] [address] [place] [address], [place] [phone] * Bah urine culture tube (07/26/2025 5:49 PM EDT) Pathologist [facility] Extra Tube Hold for add-ons. 07/26/2025 8:01 PM EDT [facility] Comment:Auto resulted. Urine Urine specimen obtained by clean catch procedure / Unknown 07/26/2025 5:49 PM EDT 07/26/2025 6:03 PM EDT us Traci Traore MD LAB URINE ORDERABLES Final Resul t [facility] [address] [place] [address], [place] [phone] * CBC auto differential (07/26/2025 5:48 PM EDT) WBC 7.8 4.8 - 10.8 K/[facility] LAB HEMETOLOGY METHOD 07/26/2025 6:10 PM EDT [facility] RBC 4.60 3.80 - 4.80 M/[facility] LAB HEMETOLOGY METHOD 07/26/2025 6:10 PM EDT [facility] Hemoglobin 13.5 11.5 - 16.0 g/dL LAB HEMETOLOGY METHOD 07/26/2025 6:10 PM EDT [facility] Hematocrit 40.0 35.0 - 47.0 % LAB HEMETOLOGY METHOD 07/26/2025 6:10 PM EDT [facility] MCV 86.2 79.0 - 98.0 FL LAB HEMETOLOGY METHOD 07/26/2025 6:10 PM EDT [facility] MCH 29.1 27.0 - 32.0 pcg LAB HEMETOLOGY METHOD 07/26/2025 6:10 PM EDT [facility] MCHC 33.8 32.0 - 37.0 g/dL LAB HEMETOLOGY METHOD 07/26/2025 6:10 PM EDT [facility] RDW 12.8 11.0 - 15.0 % LAB HEMETOLOGY METHOD 07/26/2025 6:10 PM EDT [facility] Platelets 337 130 - 400 K/mcL LAB HEMETOLOGY METHOD 07/26/2025 6:10 [facility] MPV 10.2 7.0 - 11.0 FL LAB HEMETOLOGY METHOD 07/26/2025 6:10 [facility] NRBC 0.0 <1.0 % LAB HEMETOLOGY METHOD 07/26/2025 6:10 PM EDT [facility] NRBC Absolute 0.00 <0.10 K/mcL LAB HEMETOLOGY METHOD 07/26/2025 6:10 PM [facility] Neutrophils Relative 58.3 % LAB HEMETOLOGY METHOD 07/26/2025 6:10 PM [facility] Lymphocytes Relative 30.0 % LAB HEMETOLOGY METHOD 07/26/2025 6:10 PM EDT [facility] Monocytes Relative 7.7 % LAB HEMETOLOGY METHOD 07/26/2025 6:10 PM EDT [facility] Eosinophils Relative 3.1 % LAB HEMETOLOGY METHOD 07/26/2025 6:10 PM [facility] Basophils Relative 0.6 % LAB HEMETOLOGY METHOD 07/26/2025 6:10 PM [facility] Immature Granulocytes Relative 0.3 % LAB HEMETOLOGY METHOD 07/26/2025 6:10 PM EDT [facility] Neutrophils Absolute 4.55 1.50 - 7.00 K/mcL LAB HEMETOLOGY METHOD 07/26/2025 6:10 PM EDT [facility] Lymphocytes Absolute 2.34 1.00 - 5.00 K/mcL LAB HEMETOLOGY METHOD 07/26/2025 6:10 PM EDT [facility] Monocytes Absolute 0.60 0.20 - 1.00 K/mcL LAB HEMETOLOGY METHOD 07/26/2025 6:10 PM EDT [facility] Eosinophils Absolute 0.24 0.00 - 0.50 K/mcL LAB HEMETOLOGY METHOD 07/26/2025 6:10 PM EDT [facility] Basophils Absolute 0.05 0.00 - 0.20 K/mcL LAB HEMETOLOGY METHOD 07/26/2025 6:10 PM EDT [facility] Immature Granulocytes Absolute 0.02 0.00 - 0.03 K/mcL LAB HEMETOLOGY METHOD 07/26/2025 6:10 PM EDT [facility] Blood Venous blood specimen / Unknown Venipuncture / Unknown 07/26/2025 5:48 PM EDT 07/26/2025 6:04 PM EDT Traci Traore MD LAB BLOOD ORDERABLES Final Resul t [facility] [address] [place] [address], * B-type natriuretic peptide (07/26/2025 5:48 PM EDT) BNP 7 <=100 pcg/mL LAB CHEMISTRY METHOD 07/26/2025 6:50 PM EDT [facility] Blood Venous blood specimen / Unknown Venipuncture / Unknown 07/26/2025 5:48 PM EDT 07/26/2025 6:04 PM EDT Traci Troare MD LAB BLOOD ORDERABLES Final Resul t [facility] [address] [place] [address], [place] [phone] * Cervical Cancer Screening: HPV (10/31/2021) Pathologist [facility] Cervical Cancer Screening: HPV negative, abstracted Historical Provider HEALTH MAINTENANCE Final Result * HIV Screening (10/31/2021) Pathologist [facility] HIV Screening abstracted [facility] Provider HEALTH MAINTENANCE Final Result * Hepatitis C Screening (10/31/2021) Pathologist [facility] Hepatitis C Screening abstracted [facility] Provider HEALTH MAINTENANCE Final Result * (ABNORMAL) Hemoglobin A1c (09/30/2021) [facility] Hemoglobin A1C 6.9(A) <=6.5 % Blood Venous blood specimen / Unknown Result [facility] Provider LAB BLOOD ORDERABLES Trish l Result * (ABNORMAL) Lipid panel (09/30/2021) [facility] LDL/HDL Ratio 4 0 - 4 Triglycerides 120 0 - 150 mg/dL Cholesterol 222(A) 0 - 200 mg/dL HDL 52 >=40 mg/dL LDL Cholesterol 146(A) 0 - 100 mg/dL Blood Venous blood specimen / Unknown Result [facility] Historical Provider LAB BLOOD ORDERABLES Trish l Result [...] Routine screeningmammography recommended. BI-RADS 1-negative Traci GARCIA IM[facility] BI PROCEDURES Final Resul t * Urine Albumin Creatinine Ratio (05/29/2021) Urine Albumin Creatinine Ratio abstracted Historical Provider HEALTH MAINTENANCE Final Result from Last 3 Months or Most Recently Relevant to Health Maintenance Insurance [facility] MEDICAID ADVANTAGE Care Teams Lopper Relationship Specialty Start Date End Date Physician, No Pcp PCP - General 04/28/25
--- OUTSIDE RECORDS SUMMARY | 2025-10-09 12:27 | XMS_ITS | Encounter Summary ---
Author Organization [email or web address] [facility] Address [address] [place] [address] Care Team Providers Care Coffee Grower Name Role Phone Chalino Valenzuela MD Primary Care Provider [phone] [facility], Pcp Primary Care Provider Unavailabl e Encounter Details Date Type Department Care Team Description 07/01/2013 Release of Information Medical Records [address] [place] [id number] Abstract, Provider Social History Tobacco Use Types [...] on filedocumented in this encounter Care Teams Coffee Grower Relationship Specialty Start Date End Date Chalino Valenzuela MD [address] [place], [place] [phone] PCP - General Internal Medicine 03/09/13 11/19/22 [facility], Pcp [address] [place] [id number] PCP - General Internal Medicine 11/20/22 documented as of this encounter
--- OUTSIDE RECORDS SUMMARY | 2025-10-09 12:27 | XMS_ITS | Encounter Summary ---
Author Organization [employer] [facility] Address [address] [place] [address] Care Team Providers Care Vp Scientific Name Role Phone Chalino Valenzuela MD Primary Care Provider [facility], Pcp Primary Care Provider Unavailabl e Encounter Details Date Type Department Care Team Description 05/02/2021 Orders Only Medical Records [address] [place] [id number] Ken Gates MD [address] [place] [address] Social History Tobacco Use Types Packs/Day [...] on filedocumented in this encounter Care Teams Vp Scientific Relationship Specialty Start Date End Date Chalino Valenzuela MD [address] [place] [address] PCP - General Internal Medicine 03/09/13 11/19/22 [facility], Pcp [address] [place] [address] PCP - General Internal Medicine 11/20/22 documented as of this encounter
--- OUTSIDE RECORDS SUMMARY | 2025-10-09 12:27 | XMS_ITS | Encounter Summary ---
Author Organization [facility] Address [address] [place] [address] Care Team Providers Care Online Marketing Manager Name Role Phone Chalino Valenzuela MD Primary Care Provider [phone] [facility], Pcp Primary Care Provider Unavailabl e Reason for Referral * Radiology Services - Authorized/Booked Specialty Diagnoses / Procedures Referred By Sandra t Referred To Contact Radiology Diagnoses Adenopathy Procedures CAT SCAN OF ABDOMEN NO CONTRAST Chalino Valenzuela MD [address] [place] [address] [address] Referral ID Status Reason Start Date Expiration Date V isits Requested Visits Authorized [id number] Authorized/B ooked 04/07/2014 06/06/2014 1 1 Reason for Visit * Reason Onset Date Comments TEST RESULTS 02/09/2014 Encounter Details Date Type Department Care Team Description 02/09/2014 Telephone Adult Medicine [address] [id number] Chalino Valenzuela MD [address] [place] [address] TEST RESULTS; Social History Tobacco Use [...] nodes documented in this encounter Care Teams Online Marketing Manager Relationship Specialty Start Date End Date Chalino Valenzuela MD [address] [place] [address] PCP - General Internal Medicine 03/09/13 11/19/22 [facility] Pcp [address] [place] [id number] PCP - General Internal Medicine 11/20/22 documented as of this encounter
--- OUTSIDE RECORDS SUMMARY | 2025-10-09 12:27 | XMS_ITS | Encounter Summary ---
Author Organization [employer] [address] [facility] Address [address] [place] [address] Care Team Providers Care Guard Entrance Registrar Name Role Phone Chalino Valenzuela MD Primary Care Provider [phone] [facility], Pcp Primary Care Provider Unavailabl e Encounter Details Date Type Department Care Team Description 12/29/2017 [facility] Medical Records [address] [place] [id number] Abstract, Provider Social History Tobacco Use Types [...] on filedocumented in this encounter Care Teams Guard Entrance Registrar Relationship Specialty Start Date End Date Chalino Valenzuela MD [address] [place] [address] [phone] PCP - General Internal Medicine 03/09/13 11/19/22 [facility], [address] [address] PCP - General Internal Medicine 11/20/22 documented as of this encounter
--- OUTSIDE RECORDS SUMMARY | 2025-10-09 12:27 | XMS_ITS | Encounter Summary ---
Author Organization [facility] [employer] [facility] Address [address] [place] [address] Care Team Providers Care Flight Technician Name Role Phone Chalino Valenzuela MD Primary Care Provider [phone] [facility], Pcp Primary Care Provider Unavailabl e Encounter Details Date Type Department Care Team Description 06/24/2017 [employer] Counter Clerk Report Medical Records [address] [place] [id number] Aristeo Phillips MD Social History Tobacco Use [...] on filedocumented in this encounter Care Teams Flight Technician Relationship Specialty Start Date End Date Chalino Valenzuela MD [address] [place] [address] PCP - General Internal Medicine 03/09/13 11/19/22 [facility], Pcp [address] [place] [id number] PCP - General Internal Medicine 11/20/22 documented as of this encounter
--- OUTSIDE RECORDS SUMMARY | 2025-10-09 12:27 | XMS_ITS | Encounter Summary ---
Author Organization [facility] Address [address] [place] [address] Care Team Providers Care Ticketer Name Role Phone Chalino Valenzuela MD Primary Care Provider [phone] [facility], Pcp Primary Care Provider Unavailabl e Encounter Details Date Type Department Care Team Description 08/16/2018 Hospital Medical Records [address] [place] [address] Anuj Piper MD Social History Tobacco Use Types Packs/Day [...] on filedocumented in this encounter Care Teams Ticketer Relationship Specialty Start Date End Date Chalino Valenzuela MD [address] [place] [phone] PCP - General Internal Medicine 03/09/13 11/19/22 [facility], Pcp [address] [place] [id number] PCP - General Internal Medicine 11/20/22 documented as of this encounter
== END 2025-10-09 10:51 | disposition home or self-care (01) ==
LOC: HO.PMC 10:13
PROVIDERS: Visit Provider Internal Medicine
DX: S83.206A Unspecified tear of unspecified meniscus, current injury, right knee, initial encounter (principal); M22.2X1 Patellofemoral disorders, right knee
CPT/HCPCS: 99203

== ENCOUNTER → 2025-10-09 10:13 | Outpatient (BNVA) | payer OTHER, SELFPAY | PROVIDERS: Visit Provider Internal Medicine | DX: M22.2X1 Patellofemoral disorders, right knee (principal); S83.206A Unspecified tear of unspecified meniscus, current injury, right knee, initial encounter; X58.XXXA Exposure to other specified factors, initial encounter | CPT/HCPCS: 99202 ==